=== PATIENT | male | born 1965 | race Caucasian/White ===

== ENCOUNTER 2020-06-03 07:10 | Day surgery (SDC) | payer SELFPAY ==
[2020-06-03] MEDS ORDERED: Phenylephrine HCl 10 MG/ML 1 ML VIAL ONE (07:25)
[2020-06-03] MEDS ORDERED: GLYCOPYRROLATE 0.2 MG/ML SYR ONE (07:26)
[2020-06-03] MEDS ORDERED: LIDOCAINE 4% TOP SOLUTION ONE (07:30)
[2020-06-03] MEDS ORDERED: Ringers Lactate 1,000 ML IV ONE (07:40)
[2020-06-03] MEDS ORDERED: LIDOCAINE 4% TOP SOLUTION MM ONE (07:40)
[2020-06-03] MEDS ORDERED: propofoL 200 MG/20 ML VIAL IV ONE ×2 (07:42→08:34)
[2020-06-03] MEDS ORDERED: FENTANYL CITR 100 MCG/2 ML ONE (07:42)
[2020-06-03] MEDS ORDERED: GLYCOPYRROLATE 0.2 MG/ML SYR IV ONE (07:42)
[2020-06-03] MEDS ORDERED: LIDOCAINE 2% MPF 5 ML VIAL ONE (07:42)
[2020-06-03] MEDS ORDERED: LIDOCAINE VISCOUS 2% SOLN 15 ML UDC ONE (07:48)
[2020-06-03] MEDS ORDERED: LIDOCAINE 1% MPF 30 ML VIAL ONE (07:48)
--- NOTE | 2020-06-03 08:50 | RAD REPORT ---
EXAM DESCRIPTION: RAD - FLUORO-GUIDE FOR BRONCH UPT1HR - 06/03/2020 8:45 am FINDINGS: There were 8 portable C-arm views submitted from a fluoroscopic assisted bronchoscopy. No suspicious or unexpected findings. Fluoro time was 2.6 minutes. Cumulative dose was 20.1 mGy.
--- NOTE | 2020-06-03 09:54 | RAD REPORT ---
EXAM DESCRIPTION: RAD - Chest Single View - 06/03/2020 9:40 am CLINICAL HISTORY: S/P BRONCHOSCOPY;R/O PNEUMOTHORAX COMPARISON: April 2017 TECHNIQUE: AP portable chest image was obtained 06/03/2020 9:40 am . FINDINGS: Post bronchoscopy chest film shows no pneumothorax. The right perihilar mass density is ev ident. No significant degree of pulmonary hemorrhage is identifiable. No tracheal shift. No pleural f luid collection. IMPRESSION: No post bronchoscopy pneumothorax.
[2020-06-03 10:08] VITALS: TEMP 96.7
[2020-06-03 10:10] VITALS: BP 147/83; O2SAT 96
--- NOTE | 2020-06-03 11:17 | P.OP ---
Date of Service: 06/03/20 (Bronchoscopy transbronchial biopsy BAL vibrations) Findings and Operative Technique Patient is 55 years of age admitted with a right hilar mass most likely in the superior segment of the right lower lobe active smoker has a reason up for bronchoscopy After obtaining informed consent from the patient he was premedicated by anesthesia Findings normal vocal cords normal trachea normal right and left-sided and anatomy no endobronchial lesions visible Right lung looked completely normal I attempted multiple biopsies from the superior segment including a wire brush and BAL Patient tolerated the procedure very well did not experience any desaturation for hypotension
== END 2020-06-03 09:55 | disposition home or self-care (01) ==
LOC: OR 07:10
PROVIDERS: ATTEND Internal Medicine Sleep Medicine
PROC: 8E0WXBF Computer Assisted Procedure of Trunk Region, With Fluoroscopy (ICD-10-PCS; 2020-06-03)
PROC: 0BD68ZX Extraction of Right Lower Lobe Bronchus, Via Natural or Artificial Opening Endoscopic, Diagnostic (ICD-10-PCS; principal; 2020-06-03 08:00)
DX: R91.8 Other nonspecific abnormal finding of lung field (principal); Z20.828 Contact with and (suspected) exposure to other viral communicable diseases
CPT/HCPCS: 71045; 76000; 87015; 87102; 87116; 87206; 88108; 88305; J2370; J2704; J3010; J7120; U0002

== ENCOUNTER 2021-10-20 12:07 | Emergency (ER) | payer BC, OTHER ==
[2021-10-20] MEDS ORDERED: NA CHLORIDE 0.9% 1,000 ML ONE (12:31)
[2021-10-20 12:44] LABS: Absolute Lymphocytes (CBC) 0.6 K/uL (0.7-4.9); Hematocrit 32.3 % (39.6-49.0); Lymphocytes % 4.5 % (15.3-44.8); MPV 6.5 fL (7.6-11.3); RBC Red Blood Cell Count 2.85 M/uL (4.33-5.43)
[2021-10-20 12:48] LABS: Protime INR 1.08
[2021-10-20 13:00] LABS: ALT/SGPT 66 U/L (12-78); AST/SGOT 116 U/L (15-37); Albumin 2.8 g/dL (3.4-5.0); Alkaline Phosphatase 146 U/L (45-117); Amylase 92 U/L (25-115); BUN Blood Urea Nitrogen 25 mg/dL (7-18); Bicarbonate 38 mmol/L (21-32); Bilirubin Direct 1.1 mg/dL (0-0.2); Bilirubin Total 1.8 mg/dL (0.2-1.0); CKMB Creatine Kinase MB < 1.0 ng/mL (1.0-3.6); Creatine Phosphokinase 18 U/L (39-308); Glucose Level 145 mg/dL (74-106); Lipase 1768 U/L (73-393); Protein, Total 8.6 g/dL (6.4-8.2); Sodium Level 123 mmol/L (136-145)
[2021-10-20 13:01] LABS: Potassium 2.6 mmol/L (3.5-5.1)
--- NOTE | 2021-10-20 13:14 | RAD REPORT ---
EXAM DESCRIPTION: CT - Head Brain Wo Cont - 10/20/2021 12:57 pm CLINICAL HISTORY: CONFUSED, transient alteration of awareness COMPARISON: No comparisons TECHNIQUE: Axial 5 mm thick images of the head were obtained without IV contrast. All CT scans are performed using dose optimization technique as appropriate and may include automated exposure control or mA/KV adjustment according to patient size. FINDINGS: No intracranial hemorrhage, mass, edema or shift of mid-line structures. No acute cortical based infarction. No cortical edema or sulcal effacement. Atrophy changes are advanced for patient a ge. Ventricles are in proportion to volume loss. No significant chronic ischemic change identifiable. Arterial tree calcifications are present. No abnormal extra-axial fluid collections. Mastoid air cells are clear. Mucosal thickening with air-fluid level present in the right maxillary s inus. There is partial opacification of the ethmoid air cells on the right. No acute bony findings. IMPRESSION: Patient has advanced for age volume loss but no acute intra cranial abnormality seen. Right maxillary sinusitis.
[2021-10-20] MEDS ORDERED: KCL 20 MEQ/100 mL IVPB 100 ML IV ONE (13:34)
[2021-10-20] MEDS ORDERED: POTASSIUM 25 MEQ EFFERV TAB ONE (13:34)
[2021-10-20 13:49] LABS: Platelet Estimate ADEQ
[2021-10-20 13:50] LABS: Blood Morphology Comment NOTED (NOT SEEN); Macrocytosis 2+
--- NOTE | 2021-10-20 14:16 | RAD REPORT ---
EXAM DESCRIPTION: RAD - Chest Single View - 10/20/2021 1:41 pm CLINICAL HISTORY: CONGESTION COMPARISON: Portable May 2020 TECHNIQUE: AP portable chest image was obtained 10/20/2021 1:41 pm . FINDINGS: Patient has a baseline of chronic interstitial lung disease. Right lung field findings are not substantially different. The right perihilar mass density seen on the 2019 study is not identifi able on this examination. Interstitial thickening and patchy alveolar opacities are present in the mid and lower left lung fiel d. Heart and vasculature are normal. No measurable pleural effusion and no pneumothorax. No acute bon y abnormality seen. No acute aortic findings suspected. IMPRESSION: Mild or early left lung field pneumonia changes are seen superimposed on chronic lung di sease.
--- NOTE | 2021-10-20 14:36 | RAD REPORT ---
EXAM DESCRIPTION: US - Abdomen Exam Limited - 10/20/2021 2:19 pm CLINICAL HISTORY: ruq abd pain COMPARISON: Abdomen Pelvis W Contrast dated 10/20/2021 FINDINGS: No gallstones, sludge or other abnormalities within the gallbladder lumen. There is no wal l thickening or pericholecystic fluid. No common duct stone identified. Common bile duct is upper normal at 0.8 cm. IMPRESSION: No gallbladder abnormality seen. No significant biliary tree finding.
[2021-10-20 14:40] LABS: SARS-COV-2 RT PCR POSITIVE (NEGATIVE)
--- NOTE | 2021-10-20 14:45 | RAD REPORT ---
EXAM DESCRIPTION: CT - Abdomen Pelvis W Contrast - 10/20/2021 2:31 pm CLINICAL HISTORY: ABD PAINpost COVID AMS, abnormal liver studies COMPARISON: Abdomen Exam Limited dated 10/20/2021; Chest Single View dated 10/20/2021 TECHNIQUE: Biphasic, helical CT imaging of the abdomen and pelvis was performed following 100 ml non -ionic IV contrast. No oral contrast administered. All CT scans are performed using dose optimization technique as appropriate and may include automated exposure control or mA/KV adjustment according to patient size. FINDINGS: Lower lobe bronchial wall thickening changes are present. There interstitial and alveolar opacities present in the lingula of the left upper lobe and in the left lower lung field. Given the h istory of recent COVID infection this is probably remnant COVID pneumonia. No pneumothorax or pleural effusion. No pericardial effusion. Liver shows a diffuse fatty infiltration pattern with no focal liver lesion identifiable. Spleen and pancreas show no suspicious findings. Gallbladder and biliary tree are also without suspicious findin g. Symmetric renal function is seen with no hydronephrosis or suspicious renal mass. No pyelonephritis o r acute parenchymal process. Nonspecific, symmetric perinephric stranding is present. No obstructing or nonobstructing calculi identifiable. No adrenal abnormalities. No urinary bladder abnormality seen . No dilated bowel loops or bowel wall thickening. No appendicitis findings. No active GI process ident ifiable. No free air, free fluid or inflammatory stranding. No hernia, mass or bulky lymphadenopathy . No suspicious bony findings. IMPRESSION: Bilateral lower lobe bronchial wall thickening present along with patchy interstitial an d alveolar opacities in the lingula end in the lower left lobe. Given the provided history this is pr obably remnant COVID pneumonia findings. Diffuse fatty infiltration of the liver with no focal liver lesion identifiable.
--- NOTE | 2021-10-20 15:36 | EDPHYS ---
Physician Documentation [facility] Name: Mat Brewer Age: 56 yrs Sex: Male : 1965 Arrival Date: 10/20/2021 Time: 12:11 Bed 5 Private MD: ED Physician Bethany Mitchell HPI: 10/20 12:34 This 56 yrs old Male presents to ER via Ambulatory with complaints of Weakness, ma2 Hallucination. 12:34 Patient has Covid for 4 weeks, he is here with diarrhea, is also states he has been ma2 confused over the last few days. He feels dehydrated. Historical: - Allergies: 12:23 Iodine; ph - PMHx: 12:23 Hypertension; neuropathy; ph - Immunization history:: Adult Immunizations up to date. - Social history:: Smoking status: Patient denies any tobacco usage or history of. ROS: 12:34 Constitutional: Negative for fever, chills, and weight loss. ma2 12:34 All other systems are negative. Exam: 12:34 Constitutional: This is a well developed, well nourished patient who is awake, alert, ma2 and in no acute distress. Neck: Trachea midline, no thyromegaly or masses palpated, and no cervical lymphadenopathy. Supple, full range of motion without nuchal rigidity, or vertebral point tenderness. No Meningismus. Chest/axilla: Normal chest wall appearance and motion. Nontender with no deformity. No lesions are appreciated. Cardiovascular: Regular rate and rhythm with a normal S1 and S2. No gallops, murmurs, or rubs. Normal PMI, no JVD. No pulse deficits. Respiratory: Lungs have equal breath sounds bilaterally, clear to auscultation and percussion. No rales, rhonchi or wheezes noted. No increased work of breathing, no retractions or nasal flaring. Abdomen/GI: Soft, non-tender, with normal bowel sounds. No distension or tympany. No guarding or rebound. No evidence of tenderness throughout. Skin: Warm, dry with normal turgor. Normal color with no rashes, no lesions, and no evidence of cellulitis. MS/ Extremity: Pulses equal, no cyanosis. Neurovascular intact. Full, normal range of motion. Neuro: Awake and alert, GCS 15, oriented to person, place, time, and situation. Cranial nerves II-XII grossly intact. Motor strength 5/5 in all extremities. Sensory grossly intact. Cerebellar exam normal. Normal gait. Vital Signs: 12:21 BP 118 / 85; Pulse 80; Resp 15 S; Temp 97.8(O); Pulse Ox 96% on R/A; Weight 72.57 kg; jl7 Height 5 ft. 9 in. (175.26 cm); Pain 0/10; 12:22 BP 118 / 85; Pulse 85; Resp 18; Pulse Ox 95% on R/A; ph 13:54 BP 119 / 91; Pulse 75; Resp 18; Pulse Ox 96% on R/A; ph 14:45 BP 134 / 75; Pulse 89; Resp 15; Pulse Ox 95% ; vg1 15:45 BP 149 / 87; Pulse 87; Resp 17; Pulse Ox 95% on R/A; vg1 12:21 Body Mass Index 23.63 (72.57 kg, 175.26 cm) jl7 MDM: 12:18 Patient medically screened. va2 12:34 Data reviewed: vital signs. [facility] 15:33 Counseling: I had a detailed discussion with the patient and/or guardian regarding: the [facility] historical points, exam findings, and any diagnostic results supporting the discharge/admit diagnosis, the presence of at least one elevated blood pressure reading (>120/80) during this emergency department visit, the need for outpatient follow up. Response to treatment: the patient's symptoms have markedly improved after treatment. ED course: Patient has Covid positive, dehydration hypokalemia, patient also has pancreatitis with lipase elevated above 1000 liver function enzymes are also elevated. Ultrasound shows CBD 0.8 on higher level, T bili is elevated. Patient need to be evaluated by GI. No GI service available in our hospital will transfer to higher level of care. Discussed with patient risk benefits of transfer patient agrees daughter at bedside as well.. 16:20 ED course: Accepted by Dr. Reeves. va10/20 12:24 Order name: Amylase, Serum; Complete Time: 13:45 va2 10/20 12:24 Order name: Basic Metabolic Panel; Complete Time: 13:45 [facility] 10/20 12:24 Order name: Blood Culture Adult (2) va2 10/20 12:24 Order name: CBC with Diff; Complete Time: 14:53 va10/20 12:24 Order name: CPK; Complete Time: 13:45 ma10/20 12:24 Order name: Ckmb; Complete Time: 13:45 ma10/20 12:24 Order name: LFT's; Complete Time: 13:45 ma10/20 12:24 Order name: Lactate; Complete Time: 13:45 ma10/20 12:24 Order name: Lipase; Complete Time: 13:45 ma10/20 12:24 Order name: Procalcitonin; Complete Time: 13:45 10/20 12:24 Order name: Protime (+inr); Complete Time: 13:45 ma10/20 12:24 Order name: Ptt, Activated; Complete Time: 13:45 ma10/20 12:24 Order name: Troponin HS; Complete Time: 13:45 ma10/20 12:24 Order name: Chest Single View XRAY; Complete Time: 14:53 ma10/20 12:24 Order name: Accucheck; Complete Time: 12:51 10/20 12:24 Order name: Cardiac monitoring; Complete Time: 13:11 ma10/20 12:24 Order name: EKG - Nurse/Tech; Complete Time: 13:12 ma10/20 12:24 Order name: CT Head Brain wo Cont; Complete Time: 13:45 ma10/20 13:15 Order name: COVID-19/FLU A+B (Document "Date of Onset" if Symptomatic); Complete Time: vg1 14:53 08 13:46 Order name: CT Abd/Pelvis - IV Contrast Only; Complete Time: 14:53 ma10/20 13:47 Order name: US Abdomen Limited; Complete Time: 14:53 ma10/20 13:49 Order name: Manual Differential; Complete Time: 14:53 EDMS 10/20 12:24 Order name: IV Saline Lock - Large Bore; Complete Time: 12:51 ma10/20 12:24 Order name: Labs collected and sent; Complete Time: 12:51 ma2 10/20 12:24 Order name: O2 Per Protocol; Complete Time: 12:51 ma10/20 12:24 Order name: O2 Sat Monitoring; Complete Time: 12:50 ma2 Administered Medications: 13:14 Drug: NS 0.9% (30 ml/kg) 30 ml/kg Route: IV; Rate: bolus; Site: right antecubital; ph 16:30 Follow up: Response: No adverse reaction; IV Status: Completed infusion; IV Intake: ph 2000ml 13:30 Drug: Klor-Con (potassium) Effervescent Tablet 25 mEq Route: PO; vg1 16:01 Follow up: Response: No adverse reaction ph 13:45 Drug: Potassium Chloride 10 mEq Route: IV; Rate: 1 bolus; Site: right antecubital; vg1 16:00 Follow up: Response: No adverse reaction; IV Status: Completed infusion ph 13:45 Drug: Potassium Chloride 10 mEq Route: IV; Rate: calculated rate; Site: right vg1 antecubital; 15:59 Follow up: Response: No adverse reaction; IV Status: Completed infusion ph 14:49 Drug: Rocephin (cefTRIAXone) 1 grams Route: IV; Rate: calculated rate; Site: right vg1 antecubital; 16:01 Follow up: Response: No adverse reaction; IV Status: Completed infusion ph 16:25 Drug: Zofran (Ondansetron) 4 mg Route: IVP; Site: right antecubital; vg1 18:07 Follow up: Response: No adverse reaction vg1 16:27 Drug: morphine 4 mg Route: IVP; Site: right antecubital; vg1 18:07 Follow up: Response: No adverse reaction; Marked relief of symptoms vg1 Disposition Summary: 10/20/21 15:35 Transfer Ordered Transfer Location: [facility] ma2 Reason: Higher level of care ma2 Condition: Stable ma2 Problem: new ma2 Symptoms: are unchanged ma2 Accepting Physician: dr. Cordero(10/20/21 18:08) vg1 Diagnosis - Other acute pancreatitis without necrosis or infection ma2 - Hypokalemia ma2 - Coronavirus infection, unspecified ma2 Forms: - Medication Reconciliation Form ma2 - SBAR form ma2 Signatures: Dispatcher [employer] Elaine Barajas RN RN ph Sunday Cabrera RN RN jl7 Bethany Mitchell MD MD ma2 Garcia, Victoria, RN RN vg1 Corrections: (The following items were deleted from the chart) 16:20 15:35 osh ma2 ma2 18:08 16:20 dr. Cordero ma2 vg1
--- NOTE | 2021-10-20 15:36 | ER ---
Nurse's Notes [facility] Name: Mat Brewer Age: 56 yrs Sex: Male : 1965 Arrival Date: 10/20/2021 Time: 12:11 Bed 5 Private MD: Diagnosis: Other acute pancreatitis without necrosis or infection;Hypokalemia;Coronavirus infection, unspecified Presentation: 10/20 12:21 Chief complaint: Patient's son or daughter states: Hey had Covid 3 weeks ago, no jl7 symptoms now but he just started getting confused and having hallucinations for the last few days and unsteady on his feet, pt reports low back pain. Coronavirus screen: At this time, the client does not indicate any symptoms associated with coronavirus-19. Ebola Screen: No symptoms or risks identified at this time. Initial Sepsis Screen: Does the patient meet any 2 criteria? No. Patient's initial sepsis screen is negative. Does the patient have a suspected source of infection? No. Patient's initial sepsis screen is negative. Risk Assessment: Do you want to hurt yourself or someone else? Patient reports no desire to harm self or others. Onset of symptoms is unknown. 12:21 Method Of Arrival: Ambulatory jl7 12:21 Acuity: MARITO 3 jl7 Triage Assessment: 12:28 General: Appears in no apparent distress. uncomfortable, Behavior is calm, cooperative, jl7 appropriate for age. Pain: Complains of pain in low back area Pain currently is 0 out of 10 on a pain scale. Historical: - Allergies: 12:23 Iodine; ph - PMHx: 12:23 Hypertension; neuropathy; ph - Immunization history:: Adult Immunizations up to date. - Social history:: Smoking status: Patient denies any tobacco usage or history of. Screenin:54 Abuse screen: Denies threats or abuse. Denies injuries from another. Nutritional ph screening: No deficits noted. Tuberculosis screening: No symptoms or risk factors identified. Fall Risk None identified. Assessment: 13:00 General: Appears in no apparent distress. comfortable, well groomed, Behavior is calm, ph cooperative, appropriate for age, Reports feeling ill for > 3 days, Denies fever. Pain: Complains of pain in low back area. Neuro: Level of Consciousness is awake, alert, obeys commands, Oriented to person, place, time, situation, Reports weakness "all over". Cardiovascular: Reports fatigue, lightheadedness, Denies chest pain, nausea, shortness of breath, Capillary refill < 3 seconds in bilateral fingers Patient's skin is warm and dry. Respiratory: Airway is patent Respiratory effort is even, unlabored, Denies cough, shortness of breath. GI: Reports diarrhea, denies any recent episodes. : No signs and/or symptoms were reported regarding the genitourinary system. Reports pain in lower back. Derm: Skin is intact, Skin is pink, warm \\T\\ dry. Musculoskeletal: Circulation, motion, and sensation intact. Range of motion: intact in all extremities. 14:05 Reassessment: Patient appears in no apparent distress at this time. Patient and/or ph family updated on plan of care and expected duration. Pain level reassessed. Patient is alert, oriented x 3, equal unlabored respirations, skin warm/dry/pink. US at bedside. 14:56 Reassessment: Patient appears in no apparent distress at this time. Patient and/or vg1 family updated on plan of care and expected duration. Pain level reassessed. Patient is alert, oriented x 3, equal unlabored respirations, skin warm/dry/pink. 16:18 Reassessment: Pt c/o lower back pain; received VO from DR Mitchell to administer vg1 Morphine 4 mg IVP x1 and Zofran 4 mg IVP x1. Vital Signs: 12:21 BP 118 / 85; Pulse 80; Resp 15 S; Temp 97.8(O); Pulse Ox 96% on R/A; Weight 72.57 kg; jl7 Height 5 ft. 9 in. (175.26 cm); Pain 0/10; 12:22 BP 118 / 85; Pulse 85; Resp 18; Pulse Ox 95% on R/A; ph 13:54 BP 119 / 91; Pulse 75; Resp 18; Pulse Ox 96% on R/A; ph 14:45 BP 134 / 75; Pulse 89; Resp 15; Pulse Ox 95% ; vg1 15:45 BP 149 / 87; Pulse 87; Resp 17; Pulse Ox 95% on R/A; vg1 12:21 Body Mass Index 23.63 (72.57 kg, 175.26 cm) 7 ED Course: 12:11 Patient arrived in ED. ds1 12:14 Elaine Leach, RACHEL is Primary Nurse. ph 12:18 Bethany Mitchell MD is Attending Physician. ma2 12:27 Triage completed. jl7 12:28 Arm band placed on right wrist. jl7 13:03 CT Head Brain wo Cont In Process Unspecified. EDMS 13:40 Chest Single View XRAY In Process Unspecified. EDMS 13:54 Patient has correct armband on for positive identification. Placed in gown. Bed in low ph position. Call light in reach. Side rails up X 1. digital sales executive on. Pulse ox on. NIBP on. Door closed. Noise minimized. Warm blanket given. 14:19 US Abdomen Limited In Process Unspecified. EDMS 14:31 CT Abd/Pelvis - IV Contrast Only In Process Unspecified. EDMS 17:23 No provider procedures requiring assistance completed. Patient transferred, IV remains vg1 in place. Administered Medications: 13:14 Drug: NS 0.9% (30 ml/kg) 30 ml/kg Route: IV; Rate: bolus; Site: right antecubital; ph 16:30 Follow up: Response: No adverse reaction; IV Status: Completed infusion; IV Intake: ph 2000ml 13:30 Drug: Klor-Con (potassium) Effervescent Tablet 25 mEq Route: PO; vg1 16:01 Follow up: Response: No adverse reaction ph 13:45 Drug: Potassium Chloride 10 mEq Route: IV; Rate: 1 bolus; Site: right antecubital; vg1 16:00 Follow up: Response: No adverse reaction; IV Status: Completed infusion ph 13:45 Drug: Potassium Chloride 10 mEq Route: IV; Rate: calculated rate; Site: right vg1 antecubital; 15:59 Follow up: Response: No adverse reaction; IV Status: Completed infusion ph 14:49 Drug: Rocephin (cefTRIAXone) 1 grams Route: IV; Rate: calculated rate; Site: right vg1 antecubital; 16:01 Follow up: Response: No adverse reaction; IV Status: Completed infusion ph 16:25 Drug: Zofran (Ondansetron) 4 mg Route: IVP; Site: right antecubital; vg1 18:07 Follow up: Response: No adverse reaction vg1 16:27 Drug: morphine 4 mg Route: IVP; Site: right antecubital; vg1 18:07 Follow up: Response: No adverse reaction; Marked relief of symptoms vg1 Intake: 16:30 IV: 2000ml; Total: 2000ml. ph Outcome: 15:35 ER care complete, transfer ordered by . phi 17:23 Transferred by ground EMS to [facility]. vg1 17:23 Condition: good 17:23 Instructed on the need for transfer. 18:08 Patient left the ED. vg1 Signatures: Dispatcher [employer] [facility] Bryant Sarah ds1 Elaine Leach, RN RN Sunday Hanson, RN RN jl7 Bethany Mitchell MD MD ma2 Garcia, Victoria RN RN vg1 Corrections: (The following items were deleted from the chart) 16:30 16:18 Reassessment: received VO from DR Mitchell to administer Morphine 4 mg IVP x1 and vg1 Zofran 4 mg IVP x1 vg1
[2021-10-20] MEDS ORDERED: MORPHINE 4 MG/ML SYR ONE (16:23)
[2021-10-20] MEDS ORDERED: ONDANSETRON 4 MG/2 ML VIAL ONE (16:24)
[2021-10-20 18:29] VITALS: TEMP 97.8
[2021-10-20 18:34] VITALS: BP 149/87; O2SAT 95
--- NOTE | 2021-10-21 12:49 | EKG ---
Test Date: 2021-10-20 Test Time: 13:04:54 [facility]: PH MEASUREMENT RESULTS: Intervals: Rate: 78 MI: 162 QRSD: 92 QT: 420 QTc: 478 [place]: P: 64 MI: 162 QRS: 21 T: 68 INTERPRETIVE STATEMENTS: Normal sinus rhythm Anterior infarct, age undetermined Abnormal ECG Compared to ECG 04/15/2017 15:07:18 Myocardial infarct finding now present Left ventricular hypertrophy no longer present Electronically Signed On 10-21-21 12:46:35 [facility] by Jim Quintero
== END 2021-10-20 18:08 | disposition short-term general hospital (02) ==
LOC: ER 12:07
DX: K85.80 Other acute pancreatitis without necrosis or infection (principal); E87.6 Hypokalemia; U07.1 COVID-19; I10 Essential (primary) hypertension; Z91.048 Other nonmedicinal substance allergy status
CPT/HCPCS: 93005; 87040 ×2; 85025; 80048; 36415; 82150; 82550; 85610; 80076; 83605; 85730; 84484; 82553; 83690; 84145; 0240U; 70450; 74177; 71045; 76705; Q9967; J3480; J7030; J2405; 96365; 96367; 96375; 99285

== ENCOUNTER 2022-12-01 14:30 | Emergency (ER) | payer BC, OTHER ==
--- OUTSIDE RECORDS SUMMARY | 2022-12-01 14:35 | XMS REPORT | Continuity of Care Document ---
:1965 Author Organization [facility] t Address [address] [place] [address] Care Team Providers Name Role Phone Faheem Narayan Jr. Primary Care Physician ABBIE FREEMAN Attending Clinician Unavailable JESS KAY Attending Clinician Unavailable RENALDO HANNA Attending Clinician Unavailable Renaldo Hanna MD Attending Clinician Only, [facility] Test Attending Clinician Unavailable Renaldo De La Vega MD Attending Clinician RENALDO DE LA VEGA Attending Clinician Unavailable Doctor Unassigned, [place] Attending Clinician Unavailable Pob, [facility] Main Attending Clinician Unavailable CELINE MARI Admitting Clinician Unavailable RENALDO HANNA Admitting Clinician Unavailable Renaldo Hanna MD Admitting Clinician Payers Payer Name Policy Type Policy Number Effective Date Expiration Date S [facility] [id number] 2021 CHOICE EXCHANGE 00:00:00 RAHEEM DALLAS [id number] 2020 ADVANTAGE HMO 00:00:00 Problems Condition Condition Condition Status Onset Resolution Last Treating Co mments Source Name Details Category Date Date Treatment Clinician Date Acute Acute Disease Active [facility] 2-08 [facility] is is 00:00: [facility] Center Allergies, Adverse Reactions, Alerts Allergy Allergy Status Severity Reaction(s) Onset Inactive Treating Comm ents Source Name Type Date Date Clinician Iodine Propensi Active Anaphylaxis [facility] adverse [facility]: Medical reaction 00 [place] IODINE Allergy Active High Anaphylaxis [facility] Iodine Propensi Active Anaphylaxis 2020-09 Uni vers ty to 0-22 ity of adverse 00:00: [place] reaction [address] [facility] Branch IODINE DRUG Active Med Anaphylaxis 2020-09 Unive rs INGREDI 0-22 ity of 00:00: [place] [address] [place] [address] Branch NO KNOWN Drug Active Univers ALLERGIE Class ity of S [facility] Social History Social Habit Start Date Stop Date Quantity Comments Source Exposure to Not sure [facility] SARS-CoV-2 (event) [facility] History of tobacco Current smoker [facility] use [facility] Alcohol intake 2021-10-20 2021-10-20 5 /d [facility] 00:[facility]:00 00:00:00 [facility] Cigarettes smoked 2021-10-20 2021-10-[address] [facility] current (pack per 00:00:00 00:00:00 Medical Center day) - Reported Cigarette 2021-10-20 2021-10-[address] [facility] pack-years 00:00:00 00:00:00 [facility] Tobacco use and 2021-10-20 2021-10-[address] [facility] exposure 00:00:00 00:00:00 tobacco non-user [facility] Sex Assigned At [address] [facility] 00:00:00 00:00:00 [facility] Smoking Status Start Date Stop Date Source Unknown [facility] [place] [facility] Ex-smoker 2021-10-20 00:00:00 2021-10-20 00:00:[address] [facility] [address] [facility] Never smoker [facility] Medications Ordered Filled Start Stop Current Ordering Indication Dosage Frequency Signature Comments Components Source Medication Medication Date Date Medication? Clinician (SIG) Name Name gabapentin Yes 600mg [id number] Take [address] (NEURONTIN) 2-13 [id number] mg by L ukes 100 MG 10:28: 3D mouth 3 Medical capsule 02 (three) Center times daily . hydroCHLORO Yes 25mg QD Take [address] thiazide 2-13 by mouth [facility] (MICROZIDE) 10:28: every Medic al 12.5 mg 02 morning. Center capsule metoprolol 2022- No 25mg Take [address] tartrate 2-13 - tablet (25 [facility] (LOPRESSOR) 00:00: 23:59 mg total) Medical 25 MG 00 :00 by mouth Center tablet every 6 (six) hours. neomycin-po 2020-09 Yes PRN, Univer s lymyxin-dex 09-22 Starting ity of amethasone 18:47: on [place] (MAXITROL) 00 07/23/21 Medic al 3.5 at 1247, Branch mg/g-10,000 Until unit/g-0.1 Discontinu % ed, ophthalmic Routine, ointment Intra-op neomycin-po 2020-09- No PRN, Unive rs lymyxin-dex 09-22 Starting ity of amethasone 18:47: 21:49 on [place] (MAXITROL) 00 :11 07/23/21 Medic al 3.5 at 1247, Branch mg/g-10,000 Until [place] unit/g-0.1 07/23/21 % at 1549, ophthalmic Routine, ointment Intra-op water for 2020-09 Yes PRN, Univers irrigation 09-22 Starting ity o f irrigation 18:45: on [facility] solution 00 07/23/21 Medical at 1245, Branch Until Discontinu ed, Routine, Intra-op water for 2020-09- No PRN, Univers irrigation 09-22 Starting ity of irrigation 18:45: 21:49 on [facility] [place] solution 00 :11 07/23/21 Medical at 1245, Branch Until [place] 07/23/21 at 1549, Routine, Intra-op gentamicin 2020-09 Yes PRN, Univers injection 09-22 Starting ity of 18:44: on [facility] [place] 00 07/23/21 Medical at 1244, Branch Until Discontinu ed, GILLES, Intra-op gentamicin 2020-09- No PRN, Univer s injection 09-22 Starting ity o f 18:44: 21:49 on [facility] 00 :11 07/23/21 Medical at 1244, Branch Until [place] 07/23/21 at 1549, GILLES, Intra-op dexamethaso 2020-09 Yes PRN, Univer s ne 09-22 Starting ity of (DECADRON 18:43: on [place] PHOSPHATE) 00 07/23/21 Medic al injection at 1243, Branch Until Discontinu ed, Routine, Intra-op ceFAZolin 2020-09 Yes PRN, Univers (ANCEF) 09-22 Starting ity of injection 18:43: on [place] 00 07/23/21 Medical at 1243, Branch Until Discontinu ed, GILLES, Intra-op dexamethaso 2020-09- No PRN, Univevens dejesus 09-22 Starting ity of (DECADRON 18:43: 21:49 on [facility] PHOSPHATE) 00 :11 07/23/21 Medic al injection at 1243, Branch Until [place] 07/23/21 at 1549, Routine, Intra-op ceFAZolin 2020-09- No PRN, Univers (ANCEF) 09-22 Starting ity of injection 18:43: 21:49 on [place]ena [place] 00 :11 07/23/21 Medical at 1243, Branch Until [place] 07/23/21 at 1549, GILLES, Intra-op NaCl 0.9% 2020-09 Yes PRN, Univers (NS) 09-22 Starting ity of injection 18:42: on [place] 00 07/23/21 Medical at 1242, Branch Until Discontinu ed, Routine, Intra-op NaCl 0.9% 2020-09- No PRN, Univers (NS) 09-22 Starting ity of injection 18:42: 21:49 on [place]ena [place] 00 :11 07/23/21 Medical at 1242, Branch Until [place] 07/23/21 at 1549, Routine, Intra-op DUOVISC 2020-09 Yes PRN, Univers (DUOVISC 09-22 Starting ity of VISCO 18:40: on [place] ELASTIC) 3 00 07/23/21 Medic al %-4 %(0.5 at 1240, Branch mL) 1 % Until (0.55 mL) Discontinu intraocular ed, injection Routine, Intra-op DUOVISC 2020-09- No PRN, Univers (DUOVISC 09-22 Starting ity of VISCO 18:40: 21:49 on [facility] ELASTIC) 3 00 :11 07/23/21 Medic al %-4 %(0.5 at 1240, Branch mL) 1 % Until [place] (0.55 mL) 07/23/21 intraocular at 1549, injection Routine, Intra-op EPINEPHrine 2020-09 Yes PRN, Univer s (PF) 09-22 Starting ity of 1:1,000 (1 18:32: on [place] mg/mL) 00 07/23/21 Medical (ADRENALIN at 1232, Branc h (PF)) Until injection Discontinu ed, Routine, Intra-op EPINEPHrine 2020-09- No PRN, Unive rs (PF) 09-22 Starting ity of 1:1,000 (1 18:32: 21:49 on [facility] [place] mg/mL) 00 :11 07/23/21 Medical (ADRENALIN at 1232, Branc h (PF)) Until [place] injection 07/23/21 at 1549, Routine, Intra-op tetracaine 2020-09 Yes PRN, Univers (PONTOCAINE 09-22 Starting ity of ) 0.5 % 18:25: on [facility] ophthalmic 00 07/23/21 Medic al drops at 1225, Branch Until Discontinu ed, Routine, Intra-op eye block 2020-09 Yes PRN, Univers syringe 09-22 Starting ity o f mL 18:25: on [facility] [place] 00 07/23/21 Medical at 1225, Branch Until Discontinu ed, Intra-op tetracaine 2020-09- No PRN, Univer s (PONTOCAINE 09-22 Starting ity of ) 0.5 % 18:25: 21:49 on [facility] ophthalmic 00 :11 07/23/21 Medic al drops at 1225, Branch Until [place] 07/23/21 at 1549, Routine, Intra-op eye block 2020-09- No PRN, Univers syringe 11 09-22 Starting ity of mL 18:25: 21:49 on [facility] 00 :11 07/23/21 Medical at 1225, Branch Until [place] 07/23/21 at 1549, Intra-op balanced 2020-09 Yes PRN, [facility] 09-22 Starting ity of no.2 irrig. 18:21: on [place] (BSS) 00 07/23/21 Medical ophthalmic at 1221, Branc h solution Until Discontinu ed, Routine, Intra-op balanced 2020-09- No PRN, [facility] 09-22 Starting ity o f no.2 irrig. 18:21: 21:49 on [place]ena [place] (BSS) 00 :11 07/23/21 Medical ophthalmic at 1221, Branc h solution Until [place] 07/23/21 at 1549, Routine, Intra-op cyclopent 2020-09- No .5mL 0.5 mL, Univ ers 1%-tropic 09-22 Right Eye, ity of 1%-phenyl 17:15: 17:33 ONCE, 1 [place] 2.5%-ketor 00 :00 dose, On Medic al 0.5% [place] Branch ophthalmic 07/23/21 solution at 1115, syringe 0.5 Routine, mL DSU Pre-op lactated 2020-09- No 1000mL at 42 Unive rs ringers IV 09-22 mL/hr, ity of infusion 17:15: 17:33 1,000 mL, [place] 1,000 mL 00 :00 IV Medical Infusion, Branch ONCE, 1 dose, On [place] 07/23/21 at 1115, Routine, DSU Pre-op cyclopent 2020-09- No .5mL 0.5 mL, Univ ers 1%-tropic 09-22 Right Eye, ity of 1%-phenyl 17:15: 17:33 ONCE, 1 [place] 2.5%-ketor 00 :00 dose, On Medic al 0.5% [place] Branch ophthalmic 07/23/21 solution at 1115, syringe 0.5 Routine, mL DSU Pre-op lactated 2020-09- No 1000mL at 42 Unive rs ringers IV 09-22 mL/hr, ity of infusion 17:15: 17:33 1,000 mL, Enrique as 1,000 mL 00 :00 IV Medical Infusion, [place] ONCE, 1 dose, On [place] 07/23/21 at 1115, Routine, DSU Pre-op atenoloL 2020-09 Yes 100mg Take 100 Univ ers 100 mg 1-11 mg by ity of tablet 13:44: mouth [place] [id number] [facility] Branch hydroCHLORO 2020-09 Yes 25mg Take 25 mg Univers thiazide 25 1-11 by mouth ity of mg tablet 13:44: daily. [address] gabapentin 2020-09 Yes 600mg Take 600 Un elisa 600 mg 1-11 mg by ity of tablet 13:44: mouth 3 [place] [address] (three) Medical [facility] daily. montelukast 2020-09 Yes 10mg Take 10 mg Univers 10 mg 1-11 by mouth. ity of tablet 13:44: [address] atenoloL 2020-09 Yes 100mg Take 100 Univ ers 100 mg 1-11 mg by ity of tablet 13:44: mouth [place] [id number] [facility] Branch hydroCHLORO 2020-09 Yes 25mg Take 25 mg Univers thiazide 25 1-11 by mouth ity of mg tablet 13:44: daily. [address] gabapentin 2020-09 Yes 600mg Take 600 Un elisa 600 mg 1-11 mg by ity of tablet 13:44: mouth 3 [place] [address] (three) [facility] daily. montelukast 2020-09 Yes 10mg Take 10 mg Univers 10 mg 1-11 by mouth. ity of tablet 13:44: [address] water for 2020-09 Yes PRN, Univers irrigation 0-28 Starting ity o f irrigation 14:33: on [facility] solution 07/09/21 Medical at [address] [place] [address] Until Discontinu ed, Routine, Intra-op NaCl 0.9% 2020-09 Yes PRN, Univers (NS) 0-28 Starting ity of injection 14:33: on [facility] 07/09/21 [facility] at [address] [place] [address] Until Discontinu ed, Routine, Intra-op neomycin-po 2020-09 Yes PRN, Univer s lymyxin-dex 0-28 Starting ity of amethasone 14:33: on [facility] (MAXITROL) 07/09/21 Medic al 3.5 at 0933, Branch mg/g-10,000 Until unit/g-0.1 Discontinu % ed, ophthalmic Routine, ointment Intra-op gentamicin 2020-09 Yes PRN, Univers injection 0- Starting ity of 14:33: on [facility] 00 07/09/21 Medical at 0933, Branch Until Discontinu ed, GILLES, Intra-op water for 2020-09- No PRN, Univers irrigation 007-09 Starting ity of irrigation 14:33: 17:26 [facility]19 07/09/21 Medical at 0933, Branch Until [place] 07/09/21 at 1226, Routine, Intra-op NaCl 0.9% 2020-09- No PRN, Univers (NS) 007-09 Starting ity of injection 14:33: 17:26 on [facility] 00 :19 07/09/21 Medical at 0933, Branch Until [place] 07/09/21 at 1226, Routine, Intra-op neomycin-po 2020-09- No PRN, Unive rs lymyxin-dex 007-09 Starting ity of amethasone 14:33: 17:26 on [facility] s (MAXITROL) 00 :19 07/09/21 Medic al 3.5 at 0933, Branch mg/g-10,000 Until [place] unit/g-0.1 07/09/21 % at 1226, ophthalmic Routine, ointment Intra-op gentamicin 2020-09- No PRN, Univer s injection 007-09 Starting ity o f 14:33: 17:26 on [facility] 00 :19 07/09/21 Medical at 0933, Branch Until [place] 07/09/21 at 1226, GILLES, Intra-op DUOVISC 2020-09 Yes PRN, Univers (DUOVISC 0 Starting ity of VISCO 14:31: on [place] ELASTIC) 3 00 07/09/21 Medic al %-4 %(0.5 at 0931, Branch mL) 1 % Until (0.55 mL) Discontinu intraocular ed, injection Routine, Intra-op dexamethaso 2020-09 Yes PRN, Univer s ne 0-28 Starting ity of (DECADRON 14:31: on [place] PHOSPHATE) 00 07/09/21 Medic al injection at 0931, Branch Until Discontinu ed, Routine, Intra-op ceFAZolin 2020-09 Yes PRN, Univers (ANCEF) 0-28 Starting ity of injection 14:31: on [place] 00 07/09/21 Medical at 0931, Branch Until Discontinu ed, GILLES, Intra-op DUOVISC 2020-09- No PRN, Univers (DUOVISC 0-07-09 Starting ity of VISCO 14:31: 17:26 on [place] ELASTIC) 3 00 :19 07/09/21 Medic al %-4 %(0.5 at 0931, Branch mL) 1 % Until [place] (0.55 mL) 07/09/21 intraocular at 1226, injection Routine, Intra-op dexamethaso 2020-09- No PRN, Unive rs ne 07-09 Starting ity of (DECADRON 14:31: 17:26 on [place] PHOSPHATE) 00 :19 07/09/21 Medic al injection at 0931, Branch Until [place] 07/09/21 at 1226, Routine, Intra-op ceFAZolin 2020-09- No PRN, Univers (ANCEF) 007-09 Starting ity of injection 14:31: 17:26 on [place] 00 :19 07/09/21 Medical at 0931, Branch Until [place] 07/09/21 at 1226, GILLES, Intra-op EPINEPHrine 2020-09 Yes PRN, Univer s (PF) 0 Starting ity of 1:1,000 (1 14:25: on [place] mg/mL) 00 07/09/21 Medical (ADRENALIN at 0925, Branc h (PF)) Until injection Discontinu ed, Routine, Intra-op balanced 2020-09 Yes PRN, Univers salt soln Starting ity of no.2 irrig. 14:25: on [place] (BSS) 00 07/09/21 Medical ophthalmic at 0925, Branc h solution Until Discontinu ed, Routine, Intra-op EPINEPHrine 2020-09- No PRN, Unive rs (PF) 0-07-09 Starting ity of 1:1,000 (1 14:25: 17:26 on [place] mg/mL) 00 :19 07/09/21 Medical (ADRENALIN at 0925, Branc h (PF)) Until [place] injection 07/09/21 at 1226, Routine, Intra-op balanced 2020-09- No PRN, Univers salt soln 07-09 Starting ity o f no.2 irrig. 14:25: 17:26 on [place] (BSS) 00 :19 07/09/21 Medical ophthalmic at 0925, Branc h solution Until [place] 07/09/21 at 1226, Routine, Intra-op tetracaine 2020-09 Yes PRN, Univers (PONTOCAINE Starting ity of ) 0.5 % 14:19: on [place] ophthalmic 00 07/09/21 Medic al drops at 0919, Branch Until Discontinu ed, Routine, Intra-op tetracaine 2020-09- No PRN, Univer s (PONTOCAINE 07-09 Starting ity of ) 0.5 % 14:19: 17:26 on [place] ophthalmic 00 :19 07/09/21 Medic al drops at 0919, Branch Until [place] 07/09/21 at 1226, Routine, Intra-op eye block 2020-09 Yes PRN, Univers syringe 11 Starting ity o f mL 14:18: on [place] 00 07/09/21 Medical at 0918, Branch Until Discontinu ed, Intra-op eye block 2020-09- No PRN, Univers syringe 11 07-09 Starting ity of mL 14:18: 17:26 on [place] 00 :19 07/09/21 Medical at 0918, Branch Until [place] 07/09/21 at 1226, Intra-op mydriatic 2020-09- No .5mL 0.5 mL, Univ ers #5 07-09 Left Eye, ity of ophthalmic 12:15: 12:20 ONCE, 1 [place] as solution 00 :00 dose, On Medical 0.5 mL [place] Branch syringe 07/09/21 at 0715, Routine, DSU Pre-op lactated 2020-09- No 1000mL at 42 Unive rs ringers IV 0-28 10-28 mL/hr, ity of infusion 12:15: 12:20 1,000 mL, Enrique as 1,000 mL 00 :00 IV Medical Infusion, Branch ONCE, 1 dose, On [place] 07/09/21 at 0715, Routine, DSU Pre-op mydriatic 2020-09- No .5mL 0.5 mL, Univ ers #5 0-28 10-28 Left Eye, ity of ophthalmic 12:15: 12:20 ONCE, 1 [place] solution 00 :00 dose, On Medical 0.5 mL [place] Branch syringe 07/09/21 at 0715, Routine, DSU Pre-op lactated 2020-09- No 1000mL at 42 Unive rs ringers IV 0-28 10-28 mL/hr, ity of infusion 12:15: 12:20 1,000 mL, Enrique as 1,000 mL 00 :00 IV Medical Infusion, Branch ONCE, 1 dose, On [place] 07/09/21 at 0715, Routine, DSU Pre-op atenoloL 2020-09 Yes 100mg Take 100 Univ ers 100 mg 0-28 mg by ity of tablet 10:26: mouth [place] [id number] daily. Medical Branch hydroCHLORO 2020-09 Yes 25mg Take 25 mg Univers thiazide 25 0-28 by mouth ity of mg tablet 10:26: daily. [address] gabapentin 2020-09 Yes 600mg Take 600 Un elisa 600 mg 0-28 mg by ity of tablet 10:26: mouth 3 [place] [address] (three) Medical times [place] daily. montelukast 2020-09 Yes 10mg Take 10 mg Univers 10 mg 0-28 by mouth. ity of tablet 10:26: [address] Branch atenoloL 2020-09 Yes 100mg Take 100 Univ ers 100 mg 0-28 mg by ity of tablet 10:26: mouth [place] [id number] daily. Medical Branch hydroCHLORO 2020-09 Yes 25mg Take 25 mg Univers thiazide 25 0-28 by mouth ity of mg tablet 10:26: daily. [address] gabapentin 2020-09 Yes 600mg Take 600 Un elisa 600 mg 0-28 mg by ity of tablet 10:26: mouth 3 [place] [address] (three) Medical times [place] daily. montelukast 2020-09 Yes 10mg Take 10 mg Univers 10 mg 0-28 by mouth. ity of tablet 10:26: [address] atenoloL 2020-09 Yes 100mg Take 100 Univ ers 100 mg 0-28 mg by ity of tablet 10:26: mouth [place] [address] daily. Medical Branch hydroCHLORO 2020-09 Yes 25mg Take 25 mg Univers thiazide 25 0-28 by mouth ity of mg tablet 10:26: daily. [address] gabapentin 2020-09 Yes 600mg Take 600 Un elisa 600 mg 0-28 mg by ity of tablet 10:26: mouth 3 [place] [address] (three) Medical times [place] daily. montelukast 2020-09 Yes 10mg Take 10 mg Univers 10 mg 0-28 by mouth. ity of tablet 10:26: [address] No known 2020-09 No Univers medications 0-25 ity of 10:19: [address] No known 2020-09 No Univers medications 0-25 ity of 10:19: [address] Immunizations Ordered Filled Immunization Date Status Comments [facility] Immunization Name Name SARS-COV-2 COVID-19 2021-02-19 Completed Unive rsity of MODERNA VACCINE 00:00:00 [facility] SARS-COV-2 COVID-19 2021-02-19 Completed Unive rsity of MODERNA VACCINE 00:00:00 [facility] SARS-COV-2 COVID-19 2021-01-22 Completed Unive rsity of MODERNA VACCINE 00:00:00 [facility] SARS-COV-2 COVID-19 2021-01-22 Completed Unive rsity of MODERNA VACCINE 00:00:00 [facility] Vital Signs Vital Name Observation Time Observation Value Comments Source WEIGHT 2021-10-24 05:43:00 74.39 kg HEIGHT 2021-10-20 20:30:00 180.3 cm WEIGHT 2021-10-20 20:30:00 74 kg WEIGHT 2021-10-24 05:43:00 74.39 kg HEIGHT 2021-10-20 20:30:00 180.3 cm WEIGHT 2021-10-20 20:30:00 74 kg Systolic blood 2021-07-23 19:20:00 195 mm[Hg] Univer sity of pressure [place] [facility] Diastolic blood 2021-07-23 19:20:00 115 mm[Hg] Unive rsity of pressure [place] [facility] Heart rate 2021-07-23 19:20:00 82 /min Universi ty of [place] [facility] Respiratory rate 2021-07-23 19:20:00 11 /min Univ ersity of [place] [facility] Oxygen saturation in 2021-07-23 19:20:00 99 /min University of Arterial blood by [place] [employer] Pulse oximetry Branch Body temperature 2021-07-23 17:07:00 37 Charity Univ ersity of [place] [facility] Body height 2021-07-20 13:52:00 170.2 cm Universi ty of [place] [facility] Body weight 2021-07-20 13:52:00 79.4 kg [facility]i ty [facility] [place] [facility] BMI 2021-07-20 13:52:00 27.41 kg/m2 [facility]i ty [facility] [place] [facility] Systolic blood 2021-07-23 17:07:00 160 mm[Hg] Univer sity of pressure [place] [facility] Diastolic blood 2021-07-23 17:07:00 100 mm[Hg] Unive rsity of pressure [place] [facility] Heart rate 2021-07-23 17:07:00 77 /min Universi ty [facility] [place] [facility] Body temperature 2021-07-23 17:07:00 37 Charity Univ ersity of [place] [facility] Respiratory rate 2021-07-23 17:07:00 17 /min Univ ersity of [place] [facility] Oxygen saturation in 2021-07-23 17:07:00 99 /min University of Arterial blood by [place] [employer] Pulse oximetry Branch Body height 2021-07-20 13:52:00 170.2 cm [facility]i ty [facility] [place] [facility] Body weight 2021-07-20 13:52:00 79.4 kg [facility]i ty [facility] [place] [facility] BMI 2021-07-20 13:52:00 27.41 kg/m2 [facility] [place] [facility] Systolic blood 2021-07-09 15:10:00 137 mm[Hg] Univer sity of pressure [place] [facility] Diastolic blood 2021-07-09 15:10:00 86 mm[Hg] Unive rsity of pressure [place] [facility] Respiratory rate 2021-07-09 15:10:00 12 /min Univ ersity [facility] [place] [facility] Oxygen saturation in 2021-07-09 15:10:00 100 /min University of Arterial blood by [facility] Pulse oximetry Branch Heart rate 2021-07-09 15:05:00 91 /min Universi ty of [facility] Body temperature 2021-07-09 14:47:00 36.22 Charity [facility] [place] [facility] ersity of [facility] Body height 2021-07-03 18:12:00 170.2 cm Universi ty of [place] [facility] [place] Body weight 2021-07-03 18:12:00 79.4 kg Universi ty of [facility] BMI 2021-07-03 18:12:00 27.41 kg/m2 Universi ty [facility] [place] [facility] Systolic blood 2021-07-09 12:10:00 132 mm[Hg] Univer sity of pressure [facility] Diastolic blood 2021-07-09 12:10:00 82 mm[Hg] Unive rsity of pressure [facility] Heart rate 2021-07-09 12:10:00 96 /min Universi ty [facility] [place] [facility] Body temperature 2021-07-09 12:10:00 36.39 Charity [facility] [place] [facility] ersity [facility] Respiratory rate 2021-07-09 12:10:00 16 /min [facility] [place] [facility] in 2021-07-09 12:10:00 100 /min University of Arterial blood by [facility] Pulse oximetry Branch Body height 2021-07-03 18:12:00 170.2 cm Universi ty of [place] [facility] [place] Body weight 2021-07-03 18:12:00 79.4 kg Universi ty [facility] [place] [facility] BMI 2021-07-03 18:12:00 27.41 kg/m2 Universi [facility] Procedures Procedure Date / Time Performing Source Performed Clinician PHACOEMULSIFICATION OF 2021-07-23 Renaldo Hanna [facility] CATARACT WITH INTRAOCULAR 18:16:00 Trent Richter [facility] LENS IMPLANT [facility] PATIENT FINANCIAL POLICY 2021-07-22 Doctor Unassigned, [facility] 17:20:31 [facility] PATIENT FINANCIAL POLICY 2021-07-22 Doctor Unassigned, [facility] 17:20:31 [facility] NO SHOW OR MISSED APPOINTMENT 2021-07-22 Doctor Unassigned, [facility] POLICY ACKNOWLEDGEMENT 17:20:08 [facility] NO SHOW OR MISSED APPOINTMENT 2021-07-22 Doctor Unassigned, [facility] POLICY ACKNOWLEDGEMENT 17:20:08 [facility] NOTICE OF PRIVACY PRACTICES 2021-07-22 Doctor Unassigned, [facility] 17:19:50 [facility] NOTICE OF PRIVACY PRACTICES 2021-07-22 Doctor Unassigned, [facility] 17:19:50 [facility] CONSENT/REFUSAL FOR DIAGNOSIS 2021-07-22 Doctor Unassigned, [facility] AND TREATMENT 17:19:26 [facility] CONSENT/REFUSAL FOR DIAGNOSIS 2021-07-22 Doctor Unassigned, [facility] AND TREATMENT 17:19:26 [facility] ASSIGNMENT OF BENEFITS 2021-07-22 Doctor Unassigned, [facility] 17:19:02 [facility] ASSIGNMENT OF BENEFITS 2021-07-22 Doctor Unassigned, [facility] 17:19:02 [facility] PHACOEMULSIFICATION OF 2021-07-09 [facility] CATARACT WITH INTRAOCULAR 14:10:00 Trent Richter l Branch LENS IMPLANT ASSIGNMENT OF BENEFITS 2021-07-08 Doctor Unassigned, [facility] 19:54:56 [facility] PHYSICIAN ORDERS 2021-06-30 Doctor Unassannette, [facility] 05:01:00 [facility] Plan of Care Planned Activity Planned Date Details Comments Source Future Scheduled 2026-10-20 Lipid panel (procedure) [facility] Test 00:00:00 [code = [id number]] Medical Ce nter Future Scheduled 2022-09-12 DEPRESSION SCREENING [facility] 00:00:00 (12+) [code = [facility] DEPRESSION SCREENING (12+)] Future Scheduled 2022-05-13 INFLUENZA VACCINE (#1) [facility] [code = INFLUENZA Medical Ce nter VACCINE (#1)] Future Scheduled 2014 SHINGLES VACCINES ([address] [facility] 00:00:00 2) [code = SHINGLES [facility] VACCINES (1 of 2)] Future Scheduled 1983 DTAP/TDAP/TD VACCINES [facility] 00:00:00 (1 - Tdap) [code = Medical C enter DTAP/TDAP/TD VACCINES (1 - Tdap)] Future Scheduled 1982 HEPATITIS C [facility]CRE[facility]ING [facility]00 [code = HEPATITIS C Medical Center SCREENING] Future Scheduled [address] [facility] 00:00:00 Counseling and Medical Cente r Screening (12+) [code = Tobacco Cessation Counseling and Screening (12+)] Future Scheduled 1964 COVID-19 VACCINE (#1) [facility] 00:00:00 [code = COVID-[address] VACCINE (#1)] Future Scheduled 1964 CT Colonography (combo) [facility] 00:00:00 [code = CT Colonography [facility] (combo)] Future Scheduled 1964 Screening for malignant [facility] 00:00:00 neoplasm of colon Medical Ce nter (procedure) [code = 705411215] Future Scheduled 1964 Screening for malignant [facility] 00:00:00 neoplasm of colon Medical Ce nter (procedure) [code = 060513116] Future Scheduled 1964 Screening for malignant [facility] 00:00:00 neoplasm of colon Medical Ce nter (procedure) [code = 484414295] Future Scheduled 1964 Screening for malignant [facility] 00:00:00 neoplasm of colon Medical Ce nter (procedure) [code = 040112147] Future Scheduled 1964 Sigmoidoscopy [code = [facility] Sigmoidoscopy] Medical Cente r Encounters Start End Encounter Admission Attending Care Care Encounter Source Date/Time Date/Time Type Type Clinicians Facility Department ID 2021-10-20 2021-10-25 Inpatient ER KHALIDA FREEMAN Pulmonology [id number] JOSEPH 19:23:00 10:17:00 ABBIE 2021-10-23 2021-10-[address] [facility] [id number] [facility] 00:00:00 23:59:00 Bhupendra 2021-07-23 2021-07-23 Outpatient R HOLLIS [facility] OPH [id number] Univers 10:57:00 13:43:00 RENALDO ity [facility] 2021-07-23 2021-07-23 [facility] [id number] Univers 10:57:00 13:43:00 Encounter Renaldo SHEN 350.1.13.10 [id number] [address] 2021-07-23 2021-07-23 [facility] 1.2.840.114 [id number] Univers 12:04:00 12:41:00 Renaldo SHEN 350.1.13.10 [place] [id number] [address] 2021-07-22 2021-07-22 Outpatient R [facility] [id number] Univers 10:45:00 10:45:00 RENALDO [facility] 2021-07-09 2021-07-09 Outpatient R [facility] OPH [id number] Univers 06:57:00 10:20:00 RENALDO ity [facility] 2021-07-09 2021-07-09 [facility] [id number] Univers 06:57:00 10:20:00 Encounter Renaldo SHEN 350.1.13.10 [id number] [address] 2021-07-09 2021-07-09 [facility] 1.2.840.114 [id number] Univers 08:39:00 09:16:00 Renaldo SHEN 350.1.13.10 [place] [id number] [address] 2021-07-08 2021-07-08 Laboratory Only, Adc Test [facility] 1.2.840. 114 [id number] Univers 14:58:44 15:13:44 Only Renaldo De La Vega 350.1.13.10 ity [place].2.[place] [facility] [id number] [facility] [address] 2021-07-08 2021-07-08 Outpatient R YOLETTE [facility] [id number] Univers 15:00:00 15:00:00 RENALDO [facility] 2021-07-08 2021-07-08 Orders Doctor JOE 1.2.840.114 [id number] Univers 00:00:00 00:00:00 Only UnassignedVENITA 350.1.13.10 it[place] [facility] 4.2.7.2.686 Enrique as [id number] [address] 2021-07-07 2021-07-07 Outpatient R HOLLIS [facility] [id number] Univers 15:00:00 15:00:00 [facility] 2021-06-30 2021-06-30 Outpatient Dionisio HANNA [facility] [id number] Univers 16:15:00 16:15:00 [facility] 2021-06-30 2021-06-30 Plaster Helper Mad[place], Adc Lab Main [facility] 1.2.8 40.114 [id number] Univers 15:44:06 15:59:06 Visit Renaldo Hanna 350.1.1 3.10 [facility] 4.2.7.2.686 [facility] [id number] [address] 2021-06-30 2021-06-30 Orders Doctor JOE 1.2.840.114 [id number] Univers 00:00:00 00:00:00 Only UnassignedVENITA 350.1.13.10 [place] [facility] 4.2.7.2.686 Enrique as [id number] [address] Results Test Description Test Time Test Comments Results Result Comments Source BLOOD CULTURE 2021-10-26 07:00:32 Test Item Value Reference Range Interpretation Comme nts CULTURE (BEAKER) (test code = 1095) No growth in 5 days BLOOD [id number] 07:00:32 Test Item Value Reference Range Interpretation Comments CULTURE (BEAKER) (test No growth in 5 days code = 1095) BASIC METABOLIC [id number] 05:41:21 Test Item Value Reference Range Interpretation Comments SODIUM (BEAKER) 128 meq/L 136-145 L (test code = 381) POTASSIUM (BEAKER) 3.7 meq/L 3.5-5.1 (test code = 379) CHLORIDE (BEAKER) 91 meq/L 98-107 L (test code = 382) CO2 (BEAKER) (test 26 meq/L 22-29 code = 355) BLOOD UREA NITROGEN 8 mg/dL 7-21 (BEAKER) (test code = 354) CREATININE (BEAKER) 0.64 mg/dL 0.57-1.25 (test code = 358) GLUCOSE RANDOM 84 mg/dL 70-105 (BEAKER) (test code = 652) CALCIUM (BEAKER) 8.9 mg/dL 8.4-10.2 (test code = 697) EGFR (BEAKER) (test 129 mL/min/1.73 ESTIM ATED GFR IS code = 1092) sq m NOT ACCURATE CREATININE CLEARANCE IN PREDICTING GLOMERULAR FILTRATION RATE . ESTIMATED GFR I S NOT APPLICABLE FOR DIALYSIS PATIEN TS. Recycling Technician ID - CANDICE LBASIC METABOLIC [id number] 03:44:34 Test Item Value Reference Range Interpretation Comments SODIUM (BEAKER) 126 meq/L 136-145 L (test code = 381) POTASSIUM (BEAKER) 3.3 meq/L 3.5-5.1 L (test code = 379) CHLORIDE (BEAKER) 86 meq/L 98-107 L (test code = 382) CO2 (BEAKER) (test 30 meq/L 22-29 H code = 355) BLOOD UREA NITROGEN 7 mg/dL 7-21 (BEAKER) (test code = 354) CREATININE (BEAKER) 0.63 mg/dL 0.57-1.25 (test code = 358) GLUCOSE RANDOM 96 mg/dL 70-105 (BEAKER) (test code = 652) CALCIUM (BEAKER) 8.7 mg/dL 8.4-10.2 (test code = 697) EGFR (BEAKER) (test 131 mL/min/1.73 ESTIM ATED GFR IS code = 1092) sq m NOT ACCURATE CREATININE CLEARANCE IN PREDICTING GLOMERULAR FILTRATION RATE . ESTIMATED GFR I S NOT APPLICABLE FOR DIALYSIS PATIEN TS. Recycling Technician ID - ARVIN MBASIC METABOLIC [id number] 16:36:19 Test Item Value Reference Range Interpretation Comments SODIUM (BEAKER) 126 meq/L 136-145 L (test code = 381) POTASSIUM (BEAKER) 2.8 meq/L 3.5-5.1 L (test code = 379) CHLORIDE (BEAKER) 84 meq/L 98-107 L (test code = 382) CO2 (BEAKER) (test 33 meq/L 22-29 H code = 355) BLOOD UREA NITROGEN 8 mg/dL 7-21 (BEAKER) (test code = 354) CREATININE (BEAKER) 0.65 mg/dL 0.57-1.25 (test code = 358) GLUCOSE RANDOM 99 mg/dL 70-105 (BEAKER) (test code = 652) CALCIUM (BEAKER) 8.8 mg/dL 8.4-10.2 (test code = 697) EGFR (BEAKER) (test 127 mL/min/1.73 ESTIM ATED GFR IS code = 1092) sq m NOT ACCURATE CREATININE CLEARANCE IN PREDICTING GLOMERULAR FILTRATION RATE . ESTIMATED GFR I S NOT APPLICABLE FOR DIALYSIS PATIEN TS. Recycling Technician ID - PIAYA LHEPATIC FUNCTION [id number] 05:40:05 Test Item Value Reference Range Interpretation Comments TOTAL PROTEIN (BEAKER) (test code = 6.6 gm/dL 6.0-8.3 770) ALBUMIN (BEAKER) (test code = 1145) 3.0 g/dL 3.5-5.0 L BILIRUBIN TOTAL (BEAKER) (test code 1.0 mg/dL 0.2-1.2 = 377) BILIRUBIN DIRECT (BEAKER) (test 0.7 mg/dL 0.1-0.5 H code = 706) ALKALINE PHOSPHATASE (BEAKER) (test 105 U/L 40-150 code = 346) AST (SGOT) (BEAKER) (test code = 65 U/L 5-34 H 353) ALT (SGPT) (BEAKER) (test code = 45 U/L 6-55 347) Recycling Technician ID - PIAYA LBASIC METABOLIC [id number] 05:40:04 Test Item Value Reference Range Interpretation Comments SODIUM (BEAKER) 131 meq/L 136-145 L (test code = 381) POTASSIUM (BEAKER) 2.9 meq/L 3.5-5.1 L (test code = 379) CHLORIDE (BEAKER) 84 meq/L 98-107 L (test code = 382) CO2 (BEAKER) (test 34 meq/L 22-29 H code = 355) BLOOD UREA NITROGEN 8 mg/dL 7-21 (BEAKER) (test code = 354) CREATININE (BEAKER) 0.65 mg/dL 0.57-1.25 (test code = 358) GLUCOSE RANDOM 109 mg/dL 70-105 H (BEAKER) (test code = 652) CALCIUM (BEAKER) 9.1 mg/dL 8.4-10.2 (test code = 697) EGFR (BEAKER) (test 127 mL/min/1.73 ESTIM ATED GFR IS code = 1092) sq m NOT ACCURATE CREATININE CLEARANCE IN PREDICTING GLOMERULAR FILTRATION RATE . ESTIMATED GFR I S NOT APPLICABLE FOR DIALYSIS PATIEN TS. Recycling Technician ID - PIAYA LCBC W/PLT COUNT & AUTO [id number] 04:39:54 Test Item Value Reference Range Interpretation Comments WHITE BLOOD CELL COUNT (BEAKER) 13.4 K/ L 3.5-10.5 H (test code = 775) RED BLOOD CELL COUNT (BEAKER) 2.37 M/ L 4.63-6.08 L (test code = 761) HEMOGLOBIN (BEAKER) (test code = 9.4 GM/DL 13.7-17.5 L 410) HEMATOCRIT (BEAKER) (test code = 26.1 % 40.1-51.0 L 411) MEAN CORPUSCULAR VOLUME (BEAKER) 110.1 fL 79.0-92.2 H (test code = 753) MEAN CORPUSCULAR HEMOGLOBIN 39.7 pg 25.7-32.2 H (BEAKER) (test code = 751) MEAN CORPUSCULAR HEMOGLOBIN CONC 36.0 GM/DL 32.3-36.5 (BEAKER) (test code = 752) RED CELL DISTRIBUTION WIDTH 13.1 % 11.6-14.4 (BEAKER) (test code = 412) PLATELET COUNT (BEAKER) (test 244 K/CU MM 150-450 code = 756) MEAN PLATELET VOLUME (BEAKER) 8.5 fL 9.4-12.4 L (test code = 754) NUCLEATED RED BLOOD CELLS 0 /100 WBC 0-0 (BEAKER) (test code = 413) NEUTROPHILS RELATIVE PERCENT 82 % (BEAKER) (test code = 429) LYMPHOCYTES RELATIVE PERCENT 8 % (BEAKER) (test code = 430) MONOCYTES RELATIVE PERCENT 6 % (BEAKER) (test code = 431) EOSINOPHILS RELATIVE PERCENT 1 % (BEAKER) (test code = 432) BASOPHILS RELATIVE PERCENT 0 % (BEAKER) (test code = 437) NEUTROPHILS ABSOLUTE COUNT 10.91 K/ L 1.78-5.38 H (BEAKER) (test code = 670) LYMPHOCYTES ABSOLUTE COUNT 1.02 K/ L 1.32-3.57 L (BEAKER) (test code = 414) MONOCYTES ABSOLUTE COUNT (BEAKER) 0.78 K/ L 0.30-0.82 (test code = 415) EOSINOPHILS ABSOLUTE COUNT 0.07 K/ L 0.04-0.54 (BEAKER) (test code = 416) BASOPHILS ABSOLUTE COUNT (BEAKER) 0.03 K/ L 0.01-0.08 (test code = 417) IMMATURE GRANULOCYTES-RELATIVE 4 % 0-1 H PERCENT (BEAKER) (test code = 2801) SARS-COV2/RT-PCR ([facility])2021-10-21 10:13:16 Test Item Value Reference Range Interpretation Comments SARS-COV2/RT-PCR (test Negative Not Detected, Negative, code = [id number]) See external report for linked test SARS-COV-2 PERFORMING LAB [facility] (test code = 7741822) Negative result for this test determines that SARS-CoV-2 RNA was not present in the specimen above the Limit of Detection (LOD). However, Negative results do not preclude SARS-CoV-2 infection and should not be used as the sole basis for treatment or patient management decisions. Negative results must be combined with clinical observations, patient history, and epidemiological information. A false negative result may occur if a specimen is improperly collected, transported or handled. A false negative result should be considered if patient's recent exposures or clinical presentation indicate that COVID-19 (SARS-CoV-2) is likely and diagnostic tests for other causes of illness are negative. Re-testing should be considered in cases of suspected false negatives.The limit of detection for this assay is 800 copies/mL.This SARS CoV-2 test is a real-time RT-PCR test intended for the qualitative detection of nucleic acid from SARS-CoV-2 in a nasopharyngeal swab specimen collected from individuals suspected of COVID-19 by their healthcare provider.This test has not been Food and Drug Administration (FDA) cleared or approved. This is a modified version of an approved Emergency Use Authorization (EUA) and is in the process of review by the FDA. Once authorized by the FDA, the issued EUA will be effective until the declaration that circumstances exist justifying the authorization of the emergency use ofin vitro diagnostic tests for detection and/or diagnosis of COVID-19 is terminated under Section 564(b)(2) of the Act or the EUA is revoked under Section 564(g) of the Act.Fact Sheet for Healthcare Prov iders:https://www.[employer]/sites/default/files/product/documents/Fact_Sheet_HC _Cfccxfioe_Xpdk_YQRS-GkW-5.pdfFact Sheet for Healthcare Patients:https://www.[employer]/sites/default/files/product/docume nts/Pgmy_Popip_Kfejpwnb_Kprc_HKNW-OiB-8.pdfPerforming Laboratory:[facility] [place] [address](CELLAVISION MANUAL DIFF) 2021-10-21 09:45:49 Test Item Value Reference Range Interpretation Comments NEUTROPHILS - REL 91 % (CELLAVISION)(BEAKER) (test code = 2816) LYMPHOCYTES - REL 4 % (CELLAVISION)(BEAKER) (test code = 2817) MONOCYTES - REL 3 % (CELLAVISION)(BEAKER) (test code = 2818) EOSINOPHILS - REL 1 % (CELLAVISION)(BEAKER) (test code = 2819) BANDS - REL (CELLAVISION)(BEAKER) 1 % 0-10 (test code = 2826) NEUTROPHILS - ABS 11.19 K/ul 1.78-5.38 H (CELLAVISION)(BEAKER) (test code = 2830) LYMPHOCYTES - ABS 0.49 K/ul 1.32-3.57 L (CELLAVISION)(BEAKER) (test code = 2831) MONOCYTES - ABS 0.37 K/uL 0.30-0.82 (CELLAVISION)(BEAKER) (test code = 2832) EOSINOPHILS - ABS 0.12 K/uL 0.04-0.54 (CELLAVISION)(BEAKER) (test code = 2834) BANDS - ABS (CELLAVISION)(BEAKER) 0.12 K/uL 0.00-0.80 (test code = 2840) TOTAL COUNTED (BEAKER) (test code 100 = 1351) PLT MORPHOLOGY (BEAKER) (test Normal code = 486) TOXIC GRANULATION (BEAKER) (test Present code = 771) ANISOCYTOSIS (BEAKER) (test code 2+ moderate = 961) MACROCYTES (BEAKER) (test code = 2+ moderate 964) ARTIFACT (CELLAVISION)(BEAKER) Present (test code = 3432) PLATELET CONCENTRATION Adequate (CELLAVISION)(BEAKER) (test code = 3438) Recycling Technician ID - crystal Simmons comments: Slide comments:CBC W/PLT COUNT & AUTO [id number] 09:45:48 Test Item Value Reference Range Interpretation Comments WHITE BLOOD CELL COUNT (BEAKER) 12.3 K/ L 3.5-10.5 H (test code = 775) RED BLOOD CELL COUNT (BEAKER) 2.24 M/ L 4.63-6.08 L (test code = 761) HEMOGLOBIN (BEAKER) (test code = 9.0 GM/DL 13.7-17.5 L 410) HEMATOCRIT (BEAKER) (test code = 25.1 % 40.1-51.0 L 411) MEAN CORPUSCULAR VOLUME (BEAKER) 112.1 fL 79.0-92.2 H (test code = 753) MEAN CORPUSCULAR HEMOGLOBIN 40.2 pg 25.7-32.2 H (BEAKER) (test code = 751) MEAN CORPUSCULAR HEMOGLOBIN CONC 35.9 GM/DL 32.3-36.5 (BEAKER) (test code = 752) RED CELL DISTRIBUTION WIDTH 13.2 % 11.6-14.4 (BEAKER) (test code = 412) PLATELET COUNT (BEAKER) (test 249 K/CU MM 150-450 code = 756) MEAN PLATELET VOLUME (BEAKER) 8.8 fL 9.4-12.4 L (test code = 754) NUCLEATED RED BLOOD CELLS 0 /100 WBC 0-0 (BEAKER) (test code = 413) [id number] 07:42:52 Test Item Value Reference Range Interpretation Comments PHOSPHORUS (BEAKER) (test code = 1.1 mg/dL 2.3-4.7 LL 604) Recycling Technician ID - CANDICE LVITAMIN B12 AND [id number] 05:24:41 Test Item Value Reference Range Interpretation Comments VITAMIN B12 (BEAKER) 1204 pg/mL 213-816 H (test code = 774) FOLATE (BEAKER) 1.80 ng/mL See_Comment L [Automated message] (test code = 362) The system which generated this result transmitted ref erence range: >=7.00. The reference range was not used to interpr et this result as normal/abnormal . Recycling Technician ID - PIOLMAN LBASIC METABOLIC [id number] 05:17:15 Test Item Value Reference Range Interpretation Comments SODIUM (BEAKER) 128 meq/L 136-145 L (test code = 381) POTASSIUM (BEAKER) 3.1 meq/L 3.5-5.1 L (test code = 379) CHLORIDE (BEAKER) 85 meq/L 98-107 L (test code = 382) CO2 (BEAKER) (test 33 meq/L 22-29 H code = 355) BLOOD UREA NITROGEN 15 mg/dL 7-21 (BEAKER) (test code = 354) CREATININE (BEAKER) 0.69 mg/dL 0.57-1.25 (test code = 358) GLUCOSE RANDOM 115 mg/dL 70-105 H (BEAKER) (test code = 652) CALCIUM (BEAKER) 9.0 mg/dL 8.4-10.2 (test code = 697) EGFR (BEAKER) (test 118 mL/min/1.73 ESTIM ATED GFR IS code = 1092) sq m NOT ACCURATE CREATININE CLEARANCE IN PREDICTING GLOMERULAR FILTRATION RATE . ESTIMATED GFR I S NOT APPLICABLE FOR DIALYSIS PATIEN TS. Recycling Technician ID - PIAYA LHEPATIC FUNCTION [id number] 05:17:15 Test Item Value Reference Range Interpretation Comments TOTAL PROTEIN (BEAKER) (test code = 6.2 gm/dL 6.0-8.3 770) ALBUMIN (BEAKER) (test code = 1145) 2.9 g/dL 3.5-5.0 L BILIRUBIN TOTAL (BEAKER) (test code 1.1 mg/dL 0.2-1.2 = 377) BILIRUBIN DIRECT (BEAKER) (test 0.8 mg/dL 0.1-0.5 H code = 706) ALKALINE PHOSPHATASE (BEAKER) (test 122 U/L 40-150 code = 346) AST (SGOT) (BEAKER) (test code = 85 U/L 5-34 H 353) ALT (SGPT) (BEAKER) (test code = 45 U/L 6-55 347) Recycling Technician ID - CANDICE LLACTIC ACID, [id number] 04:56:23 Test Item Value Reference Range Interpretation Comments LACTATE BLOOD VENOUS 0.84 mmol/L 0.50-2.20 Specime n slightly (2) (BEAKER) (test hemolyzed code = 2182) Recycling Technician ID - CANDICE [id number] 04:48:23 Test Item Value Reference Range Interpretation Comments PARTIAL THROMBOPLASTIN TIME 32.8 seconds 22.5-36.0 (BEAKER) (test code = 760) TSH/FREE T4 IF [id number] 00:18:07 Test Item Value Reference Range Interpretation Comments THYROID STIMULATING HORMONE 0.619 uIU/mL 0.350-4.940 (BEAKER) (test code = 772) Recycling Technician ID - [id number] 23:55:03 Test Item Value Reference Range Interpretation Comments ETHANOL (BEAKER) < mg/dL See_Comment [Automated message] The (test code = 400) system [employer] ch generated this result tra nsmitted reference range : <=10. The reference r bruce was not used to int erpret this result as normal/abnormal . Recycling Technician ID - BSPROTHROMBIN [id number] 21:15:22 Test Item Value Reference Range Interpretation Comments PROTIME (BEAKER) 13.9 seconds 11.9-14.2 (test code = 759) INR (BEAKER) (test 1.09 See_Comment [Automat ed message] code = 370) The system [employer] h generated this result transmitted ref erence range: <=5.90. The reference range was not used to int erpret this result as normal/abnormal . RECOMMENDED COUMADIN/WARFARIN INR THERAPY RANGESSTANDARD DOSE: 2.0 - 3.0 Includes: PROPHYLAXIS for venous thrombosis, systemic embolization; TREATMENT for venous thrombosis and/or pulmonary embolus.HIGH RISK: Target INR is 2.5-3.5 for patients with mechanical heart valves.CBC W/PLT COUNT & AUTO [id number] 21:12:33 Test Item Value Reference Range Interpretation Comments WHITE BLOOD CELL COUNT (BEAKER) 12.6 K/ L 3.5-10.5 H (test code = 775) RED BLOOD CELL COUNT (BEAKER) 2.47 M/ L 4.63-6.08 L (test code = 761) HEMOGLOBIN (BEAKER) (test code = 9.9 GM/DL 13.7-17.5 L 410) HEMATOCRIT (BEAKER) (test code = 27.7 % 40.1-51.0 L 411) MEAN CORPUSCULAR VOLUME (BEAKER) 112.1 fL 79.0-92.2 H (test code = 753) MEAN CORPUSCULAR HEMOGLOBIN 40.1 pg 25.7-32.2 H (BEAKER) (test code = 751) MEAN CORPUSCULAR HEMOGLOBIN CONC 35.7 GM/DL 32.3-36.5 (BEAKER) (test code = 752) RED CELL DISTRIBUTION WIDTH 13.1 % 11.6-14.4 (BEAKER) (test code = 412) PLATELET COUNT (BEAKER) (test 241 K/CU MM 150-450 code = 756) MEAN PLATELET VOLUME (BEAKER) 8.4 fL 9.4-12.4 L (test code = 754) NUCLEATED RED BLOOD CELLS 0 /100 WBC 0-0 (BEAKER) (test code = 413) NEUTROPHILS RELATIVE PERCENT 84 % (BEAKER) (test code = 429) LYMPHOCYTES RELATIVE PERCENT 5 % (BEAKER) (test code = 430) MONOCYTES RELATIVE PERCENT 8 % (BEAKER) (test code = 431) EOSINOPHILS RELATIVE PERCENT 0 % (BEAKER) (test code = 432) BASOPHILS RELATIVE PERCENT 0 % (BEAKER) (test code = 437) NEUTROPHILS ABSOLUTE COUNT 10.63 K/ L 1.78-5.38 H (BEAKER) (test code = 670) LYMPHOCYTES ABSOLUTE COUNT 0.62 K/ L 1.32-3.57 L (BEAKER) (test code = 414) MONOCYTES ABSOLUTE COUNT (BEAKER) 0.94 K/ L 0.30-0.82 H (test code = 415) EOSINOPHILS ABSOLUTE COUNT 0.02 K/ L 0.04-0.54 L (BEAKER) (test code = 416) BASOPHILS ABSOLUTE COUNT (BEAKER) 0.04 K/ L 0.01-0.08 (test code = 417) IMMATURE GRANULOCYTES-RELATIVE 3 % 0-1 H PERCENT (BEAKER) (test code = 2801) [id number] 21:09:42 Test Item Value Reference Range Interpretation Comments PHOSPHORUS (BEAKER) 1.5 mg/dL 2.3-4.7 LL Specimen slightly (test code = 604) hemolyzed Recycling Technician ID - CDPHEPATIC FUNCTION [id number] 21:08:24 Test Item Value Reference Range Interpretation Comments TOTAL PROTEIN (BEAKER) 6.9 gm/dL 6.0-8.3 Speci men slightly (test code = 770) hemolyzed ALBUMIN (BEAKER) (test 3.2 g/dL 3.5-5.0 L Speci men slightly code = 1145) hemolyzed BILIRUBIN TOTAL 1.2 mg/dL 0.2-1.2 Specimen sli ghtly (BEAKER) (test code = hemoly zed 377) BILIRUBIN DIRECT 0.8 mg/dL 0.1-0.5 H Specimen sl ightly (BEAKER) (test code = hemoly zed 706) ALKALINE PHOSPHATASE 111 U/L 40-150 (BEAKER) (test code = 346) AST (SGOT) (BEAKER) 84 U/L 5-34 H Specimen slightly (test code = 353) hemolyzed ALT (SGPT) (BEAKER) 47 U/L 6-55 Specimen slightly (test code = 347) hemolyzed Recycling Technician ID - CDPBASIC METABOLIC [id number] 21:08:23 Test Item Value Reference Range Interpretation Comments SODIUM (BEAKER) 128 meq/L 136-145 L (test code = 381) POTASSIUM (BEAKER) 2.7 meq/L 3.5-5.1 L Specimen slightly (test code = 379) hemolyzed CHLORIDE (BEAKER) 80 meq/L 98-107 L (test code = 382) CO2 (BEAKER) (test 37 meq/L 22-29 H code = 355) BLOOD UREA NITROGEN 20 mg/dL 7-21 (BEAKER) (test code = 354) CREATININE (BEAKER) 0.74 mg/dL 0.57-1.25 Specimen slightly (test code = 358) hemolyzed GLUCOSE RANDOM 122 mg/dL 70-105 H (BEAKER) (test code = 652) CALCIUM (BEAKER) 9.1 mg/dL 8.4-10.2 (test code = 697) EGFR (BEAKER) (test 109 mL/min/1.73 ESTIM ATED GFR IS code = 1092) sq m NOT ACCURATE CREATININE CLEARANCE IN PREDICTING GLOMERULAR FILTRATION RATE . ESTIMATED GFR I S NOT APPLICABLE FOR DIALYSIS PATIEN TS. Recycling Technician ID - CDPLIPID [id number] 21:08:23 Test Item Value Reference Range Interpretation Comments TRIGLYCERIDES (BEAKER) 108 mg/dL Speci men slightly (test code = 540) hemolyzed CHOLESTEROL (BEAKER) 113 mg/dL Specime n slightly (test code = 631) hemolyzed HDL CHOLESTEROL (BEAKER) 27 mg/dL (test code = 976) LDL CHOLESTEROL 64 mg/dL CALCULATED (BEAKER) (test code = 633) Triglyceride Reference Range: Low Risk <150 Borderline 150-199 High Risk 200- 499 Very High Risk >=500Cholesterol Reference Range: Low Risk <200 Borderline 200-239 High Risk >240HDL Cholesterol Reference Range: Low Risk >=60 High Risk <40LDL Cholesterol Reference Range: Optimal <100 Near Optimal 100-129 Borderline 130-159 High 160-189 Very High >=190 Recycling Technician ID - [id number] 21:08:22 Test Item Value Reference Range Interpretation Comments MAGNESIUM (BEAKER) 1.3 mg/dL 1.6-2.6 L Specimen slightly (test code = 627) hemolyzed Recycling Technician ID - [id number]
[2022-12-01] MEDS ORDERED: MORPHINE 4 MG/ML SYR ONE (15:41)
[2022-12-01] MEDS ORDERED: ONDANSETRON 4 MG/2 ML VIAL ONE (15:41)
--- NOTE | 2022-12-01 15:42 | RAD REPORT ---
EXAM DESCRIPTION: CT - Head Brain Wo Cont - 12/01/2022 3:18 pm CLINICAL HISTORY: vasculopathic. Grayscale discoloration. Absent pulse to the right heart COMPARISON: Head Brain Wo Cont dated 10/20/2021; Chest Abd Pelvis Wo Con dated 12/01/2022 TECHNIQUE: Noncontrast head CT images ad were obtained without IV contrast. Multiplanar reformats we re generated and reviewed. All CT scans are performed using dose optimization technique as appropriate and may include automated exposure control or mA/KV adjustment according to patient size. FINDINGS: No intracranial hemorrhage, mass, or edema. Midline structures are unremarkable. Mild diffuse parenchymal volume loss. Ventricular caliber is stable. Johnson-white matter differentiation is preserved, without evidence of acute infarct. No abnormal extra- axial fluid collections. Mastoid air cells and visualized portions of the paranasal sinuses are clear. No acute bony findings. IMPRESSION: No evidence of an acute intracranial process.
--- NOTE | 2022-12-01 15:51 | EDPHYS ---
Physician Documentation [facility] [place], [place] Name: Mat Brewer Age: 57 yrs Sex: Male : 1965 Arrival Date: 12/01/2022 Time: 14:36 Bed 6 Private MD: ED Physician Jair Foreman HPI: 12/01 15:35 This 57 yrs old Male presents to ER via EMS with complaints of Right upper extremity rt numbness, pain. 15:35 Patient presents to the ED with a right upper extremity pain, numbness that started rt overnight. The patient reports that the pain is aching, nonradiating. The patient denies any injury, other acute complaints. Symptoms are severe in severity, no other aggravating relieving factors.. Historical: - Allergies: 14:47 Iodine; ss - PMHx: 14:47 Hypertension; neuropathy; ss - Immunization history:: Adult Immunizations up to date, Last tetanus immunization: unknown, Flu vaccine status is unknown. - Social history:: Smoking status: Patient denies any tobacco usage or history of. - Family history:: not pertinent. ROS: 15:35 Constitutional: Negative for fever, chills, and weight loss, Cardiovascular: Negative rt for chest pain, palpitations, and edema, Respiratory: Negative for shortness of breath, cough, wheezing, and pleuritic chest pain, Abdomen/GI: Negative for abdominal pain, nausea, vomiting, diarrhea, and constipation, Skin: Negative for injury, rash, and discoloration, Psych: Negative for depression, anxiety, suicide ideation, homicidal ideation, and hallucinations. 15:35 MS/extremity: Positive for pain, paresthesias. 15:35 Neuro: Positive for numbness, Negative for weakness. Exam: 15:35 Head/Face: Normocephalic, atraumatic. Chest/axilla: Normal chest wall appearance and rt motion. Nontender with no deformity. No lesions are appreciated. Cardiovascular: Regular rate and rhythm with a normal S1 and S2. No gallops, murmurs, or rubs. Normal PMI, no JVD. No pulse deficits. Respiratory: Lungs have equal breath sounds bilaterally, clear to auscultation and percussion. No rales, rhonchi or wheezes noted. No increased work of breathing, no retractions or nasal flaring. Abdomen/GI: Soft, non-tender, with normal bowel sounds. No distension or tympany. No guarding or rebound. No evidence of tenderness throughout. Neuro: Awake and alert, GCS 15, oriented to person, place, time, and situation. Cranial nerves II-XII grossly intact. Motor strength 5/5 in all extremities. Sensory grossly intact. Cerebellar exam normal. Normal gait. Psych: Awake, alert, with orientation to person, place and time. Behavior, mood, and affect are within normal limits. 15:35 Constitutional: The patient appears Pale, ill-appearing 15:35 Musculoskeletal/extremity: Right upper extremity is cool, pale compared to the left upper extremity, difficult to palpate radial pulse, able to move digits, no appreciable swelling, no deformities noted. 16:19 ECG was reviewed by the Attending Physician. rt Vital Signs: 14:56 Pulse 98; Resp 22; Weight 72.57 kg; Height 5 ft. 10 in. ; Pain 7/10; ss 15:05 BP 114 / 80; Pulse 97; Resp 16; bp 16:15 BP 93 / 77; Pulse 95; Resp 21; Temp 97(TE); Pulse Ox 99% on R/A; bp 14:56 Body Mass Index 22.96 (72.57 kg, 177.8 cm) ss 14:56 Pain Scale: Adult ss MDM: 14:40 Patient medically screened. rt 16:02 Differential diagnosis: Acute arterial occlusion, thoracic mass; hypercoagulable state. rt Data reviewed: vital signs, nurses notes, lab test result(s), radiologic studies. 16:20 Consideration of Admission/Observation Patient requires emergent transfer for higher rt level of care. Management of patient was discussed with the following: Wet Mix Operator: Discussed case with vascular surgeon and public speaking instructor at [facility] who accept patient in transfer.. I considered the following discharge prescriptions or medication management in the emergency department Medications were administered in the Emergency Department. See MAR. Independent interpretation of the following test(s) in the Emergency Department CT Scan: My interpretation is No obvious thoracic masses seen on my interpretation of the CT scan images. Discussion of test interpretation with radiology: I had a discussion with radiology regarding a test interpretation. Discussed findings of arterial occlusion as well as discussed best imaging studies for this patient. Historians other than the Patient: Daughter/Son: Discussed care with patient's daughters. Care significantly affected by the following chronic conditions: Hypertension. Counseling: I had a detailed discussion with the patient and/or guardian regarding: the historical points, exam findings, and any diagnostic results supporting the discharge/admit diagnosis, radiology results, the need to transfer to another facility, for higher level of care, [facility][1] does not immediately have the required specialist. Response to treatment: the patient's symptoms have mildly improved after treatment. 12/01 14:42 Order name: Basic Metabolic Panel; Complete Time: 18:33 snw 12/01 14:42 Order name: CBC with Diff; Complete Time: 16:26 snw 12/01 14:42 Order name: LFT's; Complete Time: 18:33 snw 12/01 14:42 Order name: Magnesium; Complete Time: 18:33 snw 12/01 14:42 Order name: NT PRO-BNP; Complete Time: 18:33 snw 12/01 14:42 Order name: PT-INR; Complete Time: 18:33 snw 12/01 14:42 Order name: Troponin HS; Complete Time: 18:33 snw 12/01 14:42 Order name: Lactate w/ 2H reflex if indic.; Complete Time: 18:33 snw 12/01 14:42 Order name: Procalcitonin; Complete Time: 18:33 snw 12/01 14:43 Order name: TS; Complete Time: 18:33 snw 12/01 14:43 Order name: Lipase; Complete Time: 18:33 snw 12/01 15:34 Order name: CREATININE WHOLE BLOOD; Complete Time: 15:48 EDMS 12/01 15:44 Order name: SARS RAPID; Complete Time: 16:26 eb 12/01 16:06 Order name: CBC Smear Scan EDMS 12/01 14:42 Order name: XRAY Chest (1 view); Complete Time: 16:26 snw 12/01 14:42 Order name: CT Head Brain wo Cont; Complete Time: 15:48 snw 12/01 15:09 Order name: Chest Abd Pelvis Wo Con; Complete Time: 16:03 EDMS 12/01 15:18 Order name: CT Chest Abdomen Pelvis W/O Contrast rt 12/01 15:48 Order name: Lower Extremity Arterial Bilat; Complete Time: 16:03 EDMS 12/01 14:42 Order name: EKG; Complete Time: 14:43 snw 12/01 14:42 Order name: Cardiac monitoring; Complete Time: 14:59 12/01 14:42 Order name: EKG - Nurse/Tech; Complete Time: 16:09 12/01 14:42 Order name: IV Saline Lock; Complete Time: 15:56 12/01 14:42 Order name: Labs collected and sent; Complete Time: 15:56 12/01 14:42 Order name: O2 Per Protocol; Complete Time: 14:59 12/01 14:42 Order name: O2 Sat Monitoring; Complete Time: 14:59 12/01 16:06 Order name: Labs - recollect needed: recollect blue top per shoaib hemolyzed; Complete eb Time: 16:22 EC:19 Rate is 95 beats/min. Rhythm is regular, Normal Sinus Rhythm with No ectopy. QRS Kent rt is Normal. AR interval is normal. QRS interval is normal. QT interval is normal. No Q waves. T waves are Normal. No ST changes noted. Administered Medications: 15:52 Drug: morphine IVP or IV 4 mg Route: IVP; Infused Over: 4 mins; Site: left forearm; bp 16:31 Follow up: Response: No adverse reaction bp 15:52 Drug: Ondansetron IVP 4 mg Route: IVP; Site: left forearm; bp 16:31 Follow up: Response: No adverse reaction bp 16:00 Drug: Heparin (DVT/PE Drip) - ([place] [address] units, D5W IV 500 ml) 18 units/kg/hr bp {Co-Signature: kc6 (Kaylin Schreiber RN).} Route: IV; Rate: calculated rate; Site: left forearm; 16:32 Follow up: IV Status: Infusion continued upon transfer bp 16:00 Drug: Heparin (DVT/PE- Bolus per protocol) - HEParin IVP 80 units/kg {Co-Signature: kc6 bp (Kaylin Schreiber RN).} Route: IVP; Site: left forearm; 16:32 Follow up: Response: No adverse reaction bp Disposition Summary: 12/01/22 15:50 Transfer Ordered Transfer Location: [facility] rt Reason: Higher level of care rt Condition: Critical rt Problem: new rt Symptoms: are unchanged rt Accepting Physician: Dr. Chandra(12/01/22 16:32) bp Diagnosis - Acute axillary artery occlusion rt Forms: - Medication Reconciliation Form rt - SBAR form rt Signatures: Dispatcher [employer] EDMS Jyotsna Mcmahon FNP-C CUSTOMER ORDERS CLERK-Csnw Allie Barrientos, RN RN ss George Felix PA PA cp Peltier, Brian, RN RN bp Estrella Day Ryan, MD MD rt Avis Roberto RN RN sg5 Kaylin Schreiber RN kc6 Corrections: (The following items were deleted from the chart) 14:46 14:43 Lower Extremity Arterial Bilat+US.RAD.BRZ ordered. EDMS EDMS 14:55 14:43 Carotid Artery Bilateral+US.RAD.BRZ ordered. EDMS EDMS 14:55 14:47 Upper Ext Artery Bilateral ordered. EDMS EDMS 15:09 14:44 Chest Abdomen Pelvis W Con+CT.RAD.BRZ ordered. EDMS EDMS 15:22 14:59 Upper Ext Angio ordered. EDMS EDMS 15:48 15:20 Lower Extremity Artery Uni Ltd ordered. EDMS EDMS 15:55 15:50 rt rt 16:32 15:55 Dr. Chandra rt bp
--- NOTE | 2022-12-01 15:51 | ER ---
Nurse's Notes [facility] Name: Mat Brewer Age: 57 yrs Sex: Male : 1965 Arrival Date: 12/01/2022 Time: 14:36 Bed 6 Private MD: Diagnosis: Acute axillary artery occlusion Presentation: 12/01 14:45 Chief complaint: EMS states: R arm numbness that was noticed when he woke up at 0230 ss this morning. EMS reports they did not palpate a pulse. Arm is pale and cool to touch. Coronavirus screen: Client denies travel out of the [place] in the last 14 days. Ebola Screen: Patient denies exposure to infectious person. Patient denies travel to an Ebola-affected area in the 21 days before illness onset. Initial Sepsis Screen: Does the patient meet any 2 criteria? No. Patient's initial sepsis screen is negative. Does the patient have a suspected source of infection? No. Patient's initial sepsis screen is negative. Risk Assessment: Do you want to hurt yourself or someone else? Patient reports no desire to harm self or others. Onset of symptoms was December 01, 2022. 14:45 Acuity: MARITO 2 ss 14:45 Method Of Arrival: EMS: [facility] ss Historical: - Allergies: 14:47 Iodine; ss - PMHx: 14:47 Hypertension; neuropathy; ss - Immunization history:: Adult Immunizations up to date, Last tetanus immunization: unknown, Flu vaccine status is unknown. - Social history:: Smoking status: Patient denies any tobacco usage or history of. - Family history:: not pertinent. Screenin:00 [facility] ED Fall Risk Assessment (Adult) History of falling in the last 3 months, bp including since admission No falls in past 3 months (0 pts). Abuse screen: Denies threats or abuse. Denies injuries from another. Nutritional screening: No deficits noted. Tuberculosis screening: No symptoms or risk factors identified. Assessment: 15:02 General: Appears uncomfortable, Behavior is calm, cooperative, appropriate for age, sg5 Reports fatigue for 0-12 hours. Pain: Complains of pain in Lower abdominal pain and right arm pain Pain currently is 6 out of 10 on a pain scale. at worst was 10 out of 10 on a pain scale. Neuro: Level of Consciousness is awake, alert, obeys commands, Oriented to person, place, time, situation, Appropriate for age Reports weakness. Cardiovascular: Heart tones S1 S2 present Capillary refill < 3 seconds. Cardiovascular: Patient appears pale. Respiratory: Airway is patent Trachea midline. GI: Abdomen is flat, non-distended, Reports lower abdominal pain, diarrhea, nausea, vomiting. : No deficits noted. No signs and/or symptoms were reported regarding the genitourinary system. EENT: No deficits noted. No signs and/or symptoms were reported regarding the EENT system. Derm: Right arm appears pale, mottled. Musculoskeletal: No deficits noted. No signs and/or symptoms reported regarding the musculoskeletal system. 15:05 General: SEE TRIAGE NOTE. bp 16:00 Reassessment: TRANSFER TO [facility] IN PROCESS. bp 16:29 Reassessment: [facility] B/S. bp Vital Signs: 14:56 Pulse 98; Resp 22; Weight 72.57 kg; Height 5 ft. 10 in. ; Pain 7/10; ss 15:05 BP 114 / 80; Pulse 97; Resp 16; bp 16:15 BP 93 / 77; Pulse 95; Resp 21; Temp 97(TE); Pulse Ox 99% on R/A; bp 14:56 Body Mass Index 22.96 (72.57 kg, 177.8 cm) ss 14:56 Pain Scale: Adult ss ED Course: 14:36 Patient arrived in ED. eb 14:38 Jair Foreman MD is Attending Physician. rt 14:47 Triage completed. ss 14:56 Arm band placed on right wrist. ss 15:00 Patient has correct armband on for positive identification. Bed in low position. Call bp light in reach. Side rails up X2. 15:05 Khurram Grubbs, RN is Primary Nurse. bp 15:05 Inserted saline lock: 20 gauge in left forearm, using aseptic technique. Blood bp collected. 15:20 CT Head Brain wo Cont In Process Unspecified. EDMS 15:21 Chest Abd Pelvis Wo Con In Process Unspecified. EDMS 15:21 CT Chest Abdomen Pelvis W/O Contrast In Process Unspecified. EDMS 15:47 XRAY Chest (1 view) In Process Unspecified. EDMS 15:48 Lower Extremity Arterial Bilat In Process Unspecified. EDMS 15:50 initiated a transfer with VIKAS Lebron from the [facility]. eb 15:[address] Chandra the vascular surgeon access liaison for [facility] with Dr. Kellen prasad for patient transfer consultation. 16:[address] Ochoa the hematology technician access liaison for [facility] with Dr. Kellen prasad for patient transfer consultation. 16:08 administrative approval given by VIKAS Lebron/ patient has been accepted to [facility] eb 6CA room 612/ Dr. Ramón Yuen has accepted the patient in transfer/ report to be called to [phone]/. 16:30 No provider procedures requiring assistance completed. Patient transferred, IV remains bp in place. Administered Medications: 15:52 Drug: morphine IVP or IV 4 mg Route: IVP; Infused Over: 4 mins; Site: left forearm; bp 16:31 Follow up: Response: No adverse reaction bp 15:52 Drug: Ondansetron IVP 4 mg Route: IVP; Site: left forearm; bp 16:31 Follow up: Response: No adverse reaction bp 16:00 Drug: Heparin (DVT/PE Drip) - ([place] [address] units, D5W IV 500 ml) 18 units/kg/hr bp {Co-Signature: kc6 (Kaylin Schreiber RN).} Route: IV; Rate: calculated rate; Site: left forearm; 16:32 Follow up: IV Status: Infusion continued upon transfer bp 16:00 Drug: Heparin (DVT/PE- Bolus per protocol) - HEParin IVP 80 units/kg {Co-Signature: kc6 bp (Kaylin Schreiber RN).} Route: IVP; Site: left forearm; 16:32 Follow up: Response: No adverse reaction bp Medication: 15:02 VIS not applicable for this client. sg5 Outcome: 15:50 ER care complete, transfer ordered by MD. rt 16:30 Transferred by helicopter to [facility], Transfer form completed. bp Note: REPORT TO KAYLIN RAMOS 16:30 Condition: stable 16:30 Instructed on the need for transfer. 16:32 Patient left the ED. bp Signatures: Dispatcher [employer] EDMI Allie Barrientos RN RN Khurram Grubbs RN RN bp Estrella Day Ryan MD MD rt Avis Roberto, RN RN sg5 Kaylin Schreiber RN kc6 Corrections: (The following items were deleted from the chart) 16:30 16:15 Pulse Ox 99% RA; Temp 97F Temporal; ss bp
--- NOTE | 2022-12-01 15:55 | RAD REPORT ---
EXAM DESCRIPTION: CT - Chest Abd Pelvis Wo Con - 12/01/2022 3:20 pm CLINICAL HISTORY: hansen coloration COMPARISON: Lower Extremity Artery Uni Ltd dated 12/01/2022; Abdomen Pelvis W Contrast dated 10/20/19 TECHNIQUE: Noncontrast axial CT images of the chest, abdomen, and pelvis, with multiplanar reformats . All CT scans are performed using dose optimization technique as appropriate and may include automated exposure control or mA/KV adjustment according to patient size. FINDINGS: The lungs are devoid of consolidation. Right lower lobe volume loss and scarring, which co uld relate to postsurgical changes. Multifocal minimal nodularity in the posterior aspects of the upp er lobes, may relate to focal scarring, with the largest nodule measuring 6 millimeter on axial image 29/139.Trace bilateral layering pleural effusions.No pericardial effusion.No intrathoracic adenopath y. No suspicious mediastinal or right supraclavicular masses The liver, spleen, pancreas, adrenal glands and kidneys are within normal limits. Moderate free apicitis. Mildly distended small bowel loops throughout the left flank with mild fecali zation. This could relate to ileus or early obstruction, although absence of oral and IV contrast mcdaniels it evaluation. There appears to be distal nondistended small bowel in the right lower quadrant. No ev idence of free air or discrete fluid collections within limits of noncontrast evaluation. The appendi x is not well visualized, although no discrete inflammatory changes are seen in the region of the cec al base and appendix. . No pathologic lymphadenopathy in the abdomen or pelvis. No worrisome osseous finding. IMPRESSION: Moderate free ascites. Trace bilateral layering pleural effusions. Mildly distended small bowel loops throughout the left flank with mild fecalization. This could relat e to ileus or early obstruction, although absence of oral and IV contrast limit evaluation. There stiven ears to be distal nondistended small bowel in the right lower quadrant. Scarring and volume loss in the upper segment right lower lobe, which may relate to post treatment ch anges. Nonspecific reticulation and micro nodularity in the posterior aspect of the upper lobes, may relate to an infectious or inflammatory process of uncertain chronicity, or other nonspecific scarrin g. The findings were communicated to Jair Foreman on 12/01/2022 at 15:45 hours.
--- NOTE | 2022-12-01 15:59 | RAD REPORT ---
EXAM DESCRIPTION: US - Lower Extremity Arterial Bilat - 12/01/2022 3:46 pm CLINICAL HISTORY: N Absent pulse right arm COMPARISON: None available TECHNIQUE: Right upper extremity arterial Doppler examination was performed with waveform tracing. FINDINGS: Triphasic waveforms are seen throughout the right subclavian and axillary artery, with triphasic wave forms. Absent flow seen throughout the brachial, radial, and ulnar arteries. Noncompressible axillary vein, with hypoechoic thrombus present. IMPRESSION: Absent flow throughout the brachial, radial, and ulnar arteries. Preserved arterial flow within the subclavian and axillary arteries. Right axillary vein thrombosis. The findings were communicated to Jair Foreman on 12/01/2022 at 15:45 hours.
[2022-12-01 16:02] LABS: Absolute Lymphocytes (CBC) 0.4 K/uL (0.7-4.9); Hematocrit 32.2 % (39.6-49.0); MCV 123.1 fL (80-100); MPV 7.5 fL (7.6-11.3); RBC Red Blood Cell Count 2.62 M/uL (4.33-5.43)
[2022-12-01] MEDS ORDERED: HEPARIN 5000 UNIT/ML 1 ML VIAL ONE (16:02)
[2022-12-01] MEDS ORDERED: HEPARIN/D5W 25,000 UNIT/500 ML BAG IV ONE (16:03)
[2022-12-01 16:05] LABS: Platelet Estimate INCR; White Blood Cell Scan OK (OK)
[2022-12-01 16:06] LABS: Blood Morphology Comment NOTED (NOT SEEN); Macrocytosis 3+
--- NOTE | 2022-12-01 16:10 | RAD REPORT ---
EXAM DESCRIPTION: RADChest Single View12/01/2022 3:45 pm CLINICAL HISTORY: pulseless extremity COMPARISON: Chest Single View dated 10/20/2021; Chest Single View dated 06/03/2020; Chest Single View d ated 04/15/2017 TECHNIQUE: Portable AP view of the chest. FINDINGS: The lungs are clear.Subtle opacities in the upper lobes, are better evaluated on CT. No pn eumothorax or effusion. The cardiomediastinal contours are unremarkable. IMPRESSION: No acute cardiopulmonary process.
[2022-12-01 16:13] LABS: SARS-CoV-2 Antigen Rapid Res Negative (Negative)
[2022-12-01 16:27] LABS: Protime INR 1.26
[2022-12-01 16:31] LABS: Albumin 2.1 g/dL (3.4-5.0); Bilirubin Direct 0.2 mg/dL (0-0.2); Bilirubin Total 0.7 mg/dL (0.2-1.0); Magnesium 1.2 mg/dL (1.6-2.4); Potassium 3.7 mEq/L (3.5-5.1); Protein, Total 6.5 g/dL (6.4-8.2)
[2022-12-01 17:01] VITALS: BP 93/77; TEMP 97; O2SAT 99
--- NOTE | 2022-12-02 12:15 | EKG ---
Test Date: 2022-12-01 Test Time: 16:04:57 Cleater: ROSS MEASUREMENT RESULTS: Intervals: Rate: 95 WY: 134 QRSD: 78 QT: 404 QTc: 507 Arnold: P: 72 WY: 134 QRS: 81 T: 89 INTERPRETIVE STATEMENTS: Normal sinus rhythm ST & T wave abnormality, consider anterior ischemia Prolonged QT Abnormal ECG Compared to ECG 10/20/2021 13:04:54 ST (T wave) deviation now present Possible ischemia now present Prolonged QT interval now present Myocardial infarct finding no longer present Electronically Signed On 12-02-22 12:13:09 CDT by Jey Troncoso
== END 2022-12-01 16:32 | disposition short-term general hospital (02) ==
LOC: ER 14:30
DX: I74.2 Embolism and thrombosis of arteries of the upper extremities (principal); I10 Essential (primary) hypertension; Z20.822 Contact with and (suspected) exposure to COVID-19; Z91.048 Other nonmedicinal substance allergy status
CPT/HCPCS: 85025; 80048; 36415; 86900; 83735; 86850; 85610; 82565; 86901; 80076; 83605; 84484; 83690; 84145; 83880; 70450; 71250 ×2; 74176 ×2; 71045; 93925; 87811; J1644 ×2; J2405; 93005